=== PATIENT | female | born 1995 | race Hispanic/Latino ===

== ENCOUNTER 2019-01-03 11:29 | Emergency (ER) | payer OTHER, SELFPAY ==
[2019-01-03 12:30] LABS: Urine Blood 1+ (NEG); Urine Glucose NEGATIVE (NEG); Urine Protein NEGATIVE (NEG); Urine Specific Gravity 1.025 (1.005-1.030); Urine pH 5.5 (5.0-7.0)
[2019-01-03 12:38] LABS: Absolute Lymphocytes (CBC) 1.7 K/uL (0.7-4.9); Basophils % 0.5 % (0-1.3); Hematocrit 40.4 % (36.0-45.0); MPV 9.4 fL (7.6-11.3); RBC Red Blood Cell Count 4.55 M/uL (3.86-4.86)
[2019-01-03 12:54] LABS: Potassium 3.4 mmol/L (3.5-5.1)
[2019-01-03 13:28] LABS: Urine Bacteria 20-50 /HPF (<20); Urine Culture Reflex Order REFLEXED; Urine Mucus 2+ /HPF (NONE SEEN)
[2019-01-03] MEDS ORDERED: AZITHROMYCIN 250 MG TAB ONE (13:30)
[2019-01-03] MEDS ORDERED: CEFTRIAXONE 250 MG/VIAL ONE (13:30)
--- NOTE | 2019-01-03 13:50 | EDPHYS ---
Physician Documentation [facility] Name: Beckie Carrillo Age: 23 yrs Sex: Female : 1995 Arrival Date: 01/03/2019 Time: 11:48 Bed 26 Private MD: ED Physician Calin Nichols HPI: 01/03 12:19 This 23 yrs old Female presents to ER via Ambulatory with complaints of Fever. 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 - Social history:: Smoking status: Patient/guardian denies using tobacco. - Ebola Screening: : No symptoms or risks identified at this time. ROS: 12:51 Constitutional: Negative for fever, chills, and weight loss, Eyes: Negative for injury, jr8 pain, redness, and discharge, ENT: Negative for injury, pain, and discharge, Neck: Negative for injury, pain, and swelling, Cardiovascular: Negative for chest pain, palpitations, and edema, Respiratory: Negative for shortness of breath, cough, wheezing, and pleuritic chest pain, Abdomen/GI: Negative for abdominal pain, nausea, vomiting, diarrhea, and constipation, Skin: Negative for injury, rash, and discoloration, Neuro: Negative for headache, weakness, numbness, tingling, and seizure. 12:51 Allergy/Immunology: Positive for swelling to right inguinal area. Exam: 12:51 Constitutional: This is a well developed, well nourished patient who is awake, alert, jr8 and in no acute distress. Head/Face: Normocephalic, atraumatic. Eyes: Pupils equal round and reactive to light, extra-ocular motions intact. Lids and lashes normal. Conjunctiva and sclera are non-icteric and not injected. Cornea within normal limits. Periorbital areas with no swelling, redness, or edema. ENT: Nares patent. No nasal discharge, no septal abnormalities noted. Tympanic membranes are normal and external auditory canals are clear. Oropharynx with no redness, swelling, or masses, exudates, or evidence of obstruction, uvula midline. Mucous membranes moist. Neck: Trachea midline, no thyromegaly or masses palpated, and no cervical lymphadenopathy. Supple, full range of motion without nuchal rigidity, or vertebral point tenderness. No Meningismus. Chest/axilla: Normal chest wall appearance and motion. Nontender with no deformity. No lesions are appreciated. Cardiovascular: Regular rate and rhythm with a normal S1 and S2. No gallops, murmurs, or rubs. Normal PMI, no JVD. No pulse deficits. Respiratory: Lungs have equal breath sounds bilaterally, clear to auscultation and percussion. No rales, rhonchi or wheezes noted. No increased work of breathing, no retractions or nasal flaring. Abdomen/GI: Soft, non-tender, with normal bowel sounds. No distension or tympany. No guarding or rebound. No evidence of tenderness throughout. Back: No spinal tenderness. No costovertebral tenderness. Full range of motion. Skin: Warm, dry with normal turgor. Normal color with no rashes, no lesions, and no evidence of cellulitis. MS/ Extremity: Pulses equal, no cyanosis. Neurovascular intact. Full, normal range of motion. 12:51 Skin: Right inguinal lymphadenopathy noted, pt denies vaginal bleeding or discharge. Vital Signs: 11:57 BP 121 / 80; Pulse 113; Resp 18 S; Temp 99.2(O); Pulse Ox 98% on R/A; Weight 59.87 kg aa5 (R); Height 5 ft. 3 in. (160.02 cm) (R); Pain 5/10; 13:00 BP 110 / 78; Pulse 95; Resp 18; Temp 99; Pulse Ox 100% on R/A; mg2 14:08 BP 120 / 78; Pulse 80; Resp 17; Temp 99(O); Pulse Ox 100% ; mg2 11:57 Body Mass Index 23.38 (59.87 kg, 160.02 cm) aa5 MDM: 12:01 Patient medically screened. jr8 13:49 Data reviewed: vital signs, nurses notes, lab test result(s). Data interpreted: Pulse jr8 oximetry: on room air is 98 %. Interpretation: normal. Counseling: I had a detailed discussion with the patient and/or guardian regarding: the historical points, exam findings, and any diagnostic results supporting the discharge/admit diagnosis, lab results, the need for outpatient follow up, a family practitioner, to return to the emergency department if symptoms worsen or persist or if there are any questions or concerns that arise at home. 01/03 12:11 Order name: CBC with Diff; Complete Time: 12:40 [facility] 01/03 12:11 Order name: BMP; Complete Time: 13:14 [facility] 01/03 12:22 Order name: Urine Microscopic Only; Complete Time: 13:30 [facility] 01/03 12:22 Order name: Wet Prep; Complete Time: 15:21 [facility] 01/03 12:22 Order name: GC (GONORR/CHLAMYDIA) Probe [facility] 01/03 12:24 Order name: Urine Dipstick--Ancillary (enter results); Complete Time: 12:40 01/03 12:11 Order name: Urine Dipstick-Ancillary (obtain specimen); Complete Time: 12:29 [facility] 01/03 12:11 Order name: Urine Test (obtain specimen); Complete Time: 12:29 [facility] 01/03 12:22 Order name: Pelvic Exam Setup; Complete Time: 12:29 [facility] 01/03 13:30 Order name: Urine Culture EDMS Administered Medications: 13:36 Drug: Zithromax 1 grams Route: PO; mg2 14:03 Follow up: Response: No adverse reaction mg2 13:37 Not Given (Physician Discretion): Rocephin (cefTRIAXone) 250 mg IM once mg2 13:39 Drug: Rocephin (cefTRIAXone) 50 mg/kg Route: IVPB; Site: right antecubital; mg2 14:03 Follow up: Response: No adverse reaction; IV Status: Completed infusion mg2 Disposition: 01/03/19 13:49 Discharged to Home. Impression: Fever, unspecified, Acute lymphadenitis of lower limb, Female pelvic inflammatory disease, unspecified. - Condition is Stable. - Discharge Instructions: Fever, Adult, Pelvic Inflammatory Disease, Sexually Transmitted Disease, Safe Sex. - Prescriptions for Doxycycline Hyclate 100 mg Oral Tablet - take 1 tablet by ORAL route every 12 hours for 14 days; 28 tablet. - Medication Reconciliation Form, Thank You Letter, Antibiotic Education, Prescription Opioid Use form. - Follow up: Private Physician; When: 2 - 3 days; Reason: Recheck today's complaints, Re-evaluation by your physician. - Problem is new. - Symptoms are unchanged. Addendum: 01/05/2019 07:57 Co-signature as Attending Physician, Calin Nichols MD I agree with the assessment and c villalobos plan of care. Signatures: Dispatcher [employer] [facility] Calni Nichols MD MD cha Calderon, Audri, RN RN aa5 Sudhir Friedman, PA PA jr8 Elliott Clifford RN RN mg2 Corrections: (The following items were deleted from the chart) 01/03 13:06 12:11 [employer]+US.RAD.BRZ ordered. [facility] 14:09 13:49 01/03/2019 13:49 Discharged to Home. Impression: Fever, unspecified; Acute mg2 lymphadenitis of lower limb; Female pelvic inflammatory disease, unspecified. Condition is Stable. Discharge Instructions: Fever, Adult, Sexually Transmitted Disease, Safe Sex. Prescriptions for Doxycycline Hyclate 100 mg Oral Tablet - take 1 tablet by ORAL route every 12 hours for 14 days; 28 tablet. and Forms are Medication Reconciliation Form, Thank You Letter, Antibiotic Education, Prescription Opioid Use. Follow up: Private Physician; When: 2 - 3 days; Reason: Recheck today's complaints, Re-evaluation by your physician. Problem is new. Symptoms are unchanged. jr8
--- NOTE | 2019-01-03 13:50 | ER ---
Nurse's Notes [facility] Name: Beckie Carrillo Age: 23 yrs Sex: Female : 1995 Arrival Date: 01/03/2019 Time: 11:48 Bed 26 Private MD: Diagnosis: Fever, unspecified;Acute lymphadenitis of lower limb;Female pelvic inflammatory disease, unspecified Presentation: 01/03 11:55 Presenting complaint: Patient states: "today is day 4 of a fever". Pt denies aa5 cough/congestion/sore throat. Pt states "I also have a hangover and I did vomit but I think it's the hangover". Pt also reports diarrhea today. Pt also reports body aches. Transition of care: patient was not received from another setting of care. Onset of symptoms was December 2018. Risk Assessment: Do you want to hurt yourself or someone else? Patient reports no desire to harm self or others. Initial Sepsis Screen: Does the patient meet any 2 criteria? HR > 90 bpm. Does the patient have a suspected source of infection? No. Patient's initial sepsis screen is negative. Care prior to arrival: None. 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 - Social history:: Smoking status: Patient/guardian denies using tobacco. - Ebola Screening: : No symptoms or risks identified at this time. Screenin:26 Abuse screen: Denies threats or abuse. Denies injuries from another. Nutritional mg2 screening: No deficits noted. Tuberculosis screening: No symptoms or risk factors identified. Fall Risk IV access (20 points). Assessment: 12:27 General: Appears in no apparent distress. comfortable, Behavior is calm, cooperative. mg2 Pain: Complains of pain in right groin Pain does not radiate. Pain currently is 3 out of 10 on a pain scale. Quality of pain is described as aching, Pain began gradually, 4 days ago Is intermittent. Neuro: Level of Consciousness is awake, alert, obeys commands, Oriented to person, place, time, situation. Cardiovascular: Capillary refill < 3 seconds Patient's skin is warm and dry. Respiratory: Airway is patent Respiratory effort is even, unlabored, Respiratory pattern is regular, symmetrical. GI: No signs and/or symptoms were reported involving the gastrointestinal system. : No signs and/or symptoms were reported regarding the genitourinary system. EENT: No signs and/or symptoms were reported regarding the EENT system. Derm: Skin is intact, is healthy with good turgor, Skin is pink, warm \\T\\ dry. normal. Musculoskeletal: Circulation, motion, and sensation intact. Capillary refill < 3 seconds, Swelling present in rigth groin. Vital Signs: 11:57 BP 121 / 80; Pulse 113; Resp 18 S; Temp 99.2(O); Pulse Ox 98% on R/A; Weight 59.87 kg aa5 (R); Height 5 ft. 3 in. (160.02 cm) (R); Pain 5/10; 13:00 BP 110 / 78; Pulse 95; Resp 18; Temp 99; Pulse Ox 100% on R/A; mg2 14:08 BP 120 / 78; Pulse 80; Resp 17; Temp 99(O); Pulse Ox 100% ; mg2 11:57 Body Mass Index 23.38 (59.87 kg, 160.02 cm) aa5 ED Course: 11:48 Patient arrived in ED. aa5 11:55 Arm band placed on. aa5 11:57 Triage completed. aa5 12:01 Sudhir Friedman [facility]. jr8 12:01 Calin Nichols MD is Attending Physician. jr8 12:08 Elliott Clifford, JUAN CARLOS is Primary Nurse. mg2 12:26 Inserted saline lock: 22 gauge in right antecubital area, using aseptic technique. mg2 Blood collected. by Gera web content writer. 12:29 Patient has correct armband on for positive identification. Pulse ox on. NIBP on. Door mg2 closed. Warm blanket given. 13:34 Urine Culture Sent. jp3 14:04 Assist provider with pelvic exam: Set up pelvic tray. Performed by Errol Harvey Specimens mg2 sent to lab. Patient tolerated well. under supervision of CASSANDRA Peguero. IV discontinued, intact, bleeding controlled, No redness/swelling at site. Pressure dressing applied. Administered Medications: 13:36 Drug: Zithromax 1 grams Route: PO; mg2 14:03 Follow up: Response: No adverse reaction mg2 13:37 Not Given (Physician Discretion): Rocephin (cefTRIAXone) 250 mg IM once mg2 13:39 Drug: Rocephin (cefTRIAXone) 50 mg/kg Route: IVPB; Site: right antecubital; mg2 14:03 Follow up: Response: No adverse reaction; IV Status: Completed infusion mg2 Outcome: 13:49 Discharge ordered by MD. antonio 14:09 Discharged to home ambulatory. mg2 14:09 Condition: stable 14:09 Discharge instructions given to patient, Instructed on discharge instructions, follow up and referral plans. medication usage, Demonstrated understanding of instructions, follow-up care, medications, Prescriptions given X 1. 14:09 Patient left the ED. mg2 Signatures: Fatuma Carrasco RN RN aa5 Sudhir Friedman PA PA jr8 Elliott Clifford RN RN mg2 Tarun Williamson jp3 Corrections: (The following items were deleted from the chart) 14:08 12:26 No provider procedures requiring assistance completed. mg2 mg2
[2019-01-03 14:15] VITALS: TEMP 99; O2SAT 100
[2019-01-03 14:17] VITALS: BP 120/78
[2019-01-07 18:03] LABS: C.trachomatis RNA,TMA Not Detected (Not Detected)
== END 2019-01-03 14:09 | disposition home or self-care (01) ==
LOC: ER 11:29
DX: N73.9 Female pelvic inflammatory disease, unspecified (principal); L04.3 Acute lymphadenitis of lower limb
CPT/HCPCS: 36415; 80048; 81003; 81015; 85025; 87086; 87088; 87210; 87490; 87590; 96365; 99284; J0696

== ENCOUNTER 2021-01-07 09:32 | Emergency (ER) | payer OTHER, SELFPAY ==
[2021-01-07 10:23] LABS: Absolute Lymphocytes (CBC) 2.4 K/uL (0.7-4.9); Basophils % 0.9 % (0-1.3); Hematocrit 38.4 % (36.0-45.0); Lymphocytes % 28.8 % (15.3-44.8); RBC Red Blood Cell Count 4.32 M/uL (3.86-4.86)
[2021-01-07 10:39] LABS: Urine Blood 1+ (Negative); Urine Glucose Negative (Negative); Urine Protein Negative (Negative); Urine Specific Gravity >=1.030 (1.005-1.030)
[2021-01-07 10:55] LABS: Urine Bacteria <20 /HPF (<20); Urine RBC <5 /HPF (NONE SEEN)
[2021-01-07 10:56] LABS: BUN Blood Urea Nitrogen 12 mg/dL (7-18); Bicarbonate 24 mmol/L (21-32); Glucose Level 106 mg/dL (74-106); HCG, Quantitative 17303 mIU/mL (1-3); Potassium 3.4 mmol/L (3.5-5.1); Sodium Level 140 mmol/L (136-145)
--- NOTE | 2021-01-07 12:18 | RAD REPORT ---
EXAM DESCRIPTION: US - Transvaginal OB - 01/07/2021 12:09 pm CLINICAL HISTORY: VAGINAL BLEEDING COMPARISON: No comparisons FINDINGS: Gestational sac identified measuring 1.7 cm which is consistent with 6 weeks 1 day. No fet al heart tones identified. Vascular flow is present within the left ovary. The right ovary was not vi sualized. A yolk sac is present measuring 2 millimeters. IMPRESSION: Single IUP identified which measures 6 weeks 3 days and estimated delivery of 08/30/2021 . No pole or heart tones identified likely due to early dates. Short-term follow-up ultrasound could confirm.
--- NOTE | 2021-01-07 12:40 | EDPHYS ---
Physician Documentation [facility] Name: Beckie Carrillo Age: 25 yrs Sex: Female : 1995 Arrival Date: 01/07/2021 Time: 09:34 Bed 17 Private MD: ED Physician Betty Graham HPI: 01/07 10:39 This 25 yrs old Female presents to ER via Ambulatory with complaints of pm1 Vaginal Bleeding, + Preg <12wks. 10:39 The patient presents to the emergency department with vaginal bleeding, that is light. pm1 The estimated gestational age is 2 weeks. course: care: private OB physician. Associated signs and symptoms: Pertinent negatives: abdominal pain, dysuria, fever, vomiting. The patient has experienced a previous episode, Patient with miscarriage at 12 weeks and D\\T\\C 2 months ago. The patient has been recently seen by a physician: verification with OB as scheduled ultrasound of in 1 month. 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 - Social history:: Smoking status: Patient denies any tobacco usage or history of. ROS: 10:39 Constitutional: Negative for fever, chills, and weight loss, Cardiovascular: Negative pm1 for chest pain, palpitations, and edema, Respiratory: Negative for shortness of breath, cough, wheezing, and pleuritic chest pain, Abdomen/GI: Negative for abdominal pain, nausea, vomiting, diarrhea, and constipation. 10:39 MS/Extremity: Negative for injury and deformity, Skin: Negative for injury, rash, and discoloration, Neuro: Negative for headache, weakness, numbness, tingling, and seizure. 10:39 : Positive for vaginal bleeding, Negative for urinary symptoms, pelvic pain. 10:39 All other systems are negative. Exam: 10:39 Constitutional: This is a well developed, well nourished patient who is awake, alert, pm1 and in no acute distress. Head/Face: Normocephalic, atraumatic. 10:39 Back: No spinal tenderness. No costovertebral tenderness. Full range of motion. Skin: Warm, dry with normal turgor. Normal color with no rashes, no lesions, and no evidence of cellulitis. MS/ Extremity: Pulses equal, no cyanosis. Neurovascular intact. Full, normal range of motion. 10:39 Cardiovascular: Exam negative for acute changes, Rate: normal, Rhythm: regular, Pulses: no pulse deficits are appreciated. 10:39 Respiratory: Exam negative for acute changes, respiratory distress, shortness of breath. 10:39 Abdomen/GI: Exam negative for acute changes, Inspection: abdomen appears normal, Palpation: abdomen is soft and non-tender, in all quadrants. 10:39 Neuro: Exam negative for acute changes, Orientation: is normal, Mentation: is normal, Motor: is normal, moves all fours. Vital Signs: 09:40 BP 121 / 81; Pulse 88; Resp 18 S; Temp 98.3(O); Pulse Ox 100% on R/A; Weight 58.06 kg aa5 (R); Height 5 ft. 4 in. (162.56 cm) (R); Pain 5/10; 09:54 BP 121 / 21; Pulse 88; Resp 20; Temp 98.3; Pulse Ox 100% on R/A; kh1 10:43 BP 125 / 86; Pulse 104; Resp 20; Temp 98.3; Pulse Ox 100% ; kh1 09:40 Body Mass Index 21.97 (58.06 kg, 162.56 cm) aa5 MDM: 09:51 Patient medically screened. pm1 12:39 Data reviewed: vital signs. Data interpreted: Pulse oximetry: on room air is 100 %. pm1 Interpretation: normal. Counseling: I had a detailed discussion with the patient and/or guardian regarding: the historical points, exam findings, and any diagnostic results supporting the discharge/admit diagnosis, lab results, radiology results, the need for outpatient follow up, an OB/Gyne specialist, to return to the emergency department if symptoms worsen or persist or if there are any questions or concerns that arise at home. 01/07 09:51 Order name: Abo/rh Typing; Complete Time: 11:09 pm1 01/07 09:51 Order name: Basic Metabolic Panel; Complete Time: 11:09 pm1 10 09:51 Order name: CBC with Diff; Complete Time: 11:09 pm1 01/07 09:51 Order name: Quantitative Hcg; Complete Time: 11:09 pm1 01/07 09:51 Order name: Urine Microscopic Only; Complete Time: 11:09 pm1 01/07 10:39 Order name: Urine Dipstick-Ancillary; Complete Time: 11:09 EDMS 01/07 09:51 Order name: IV Saline Lock; Complete Time: 10:41 pm1 01/07 09:51 Order name: Labs collected and sent; Complete Time: 10:41 pm1 01/07 09:51 Order name: NPO; Complete Time: 10:41 pm1 01/07 09:51 Order name: Urine Dipstick-Ancillary (obtain specimen); Complete Time: 10:41 pm1 01/07 09:51 Order name: Urine Test (obtain specimen); Complete Time: 10:41 pm1 01/07 11:11 Order name: US Transvaginal Ob; Complete Time: 12:38 pm1 Administered Medications: No medications were administered Point of Care Testing: Urine : 11:00 hCG Reading: Positive; kh1 Disposition Summary: 01/07/21 12:39 Discharge Ordered Location: Home pm1 Problem: new pm1 Symptoms: have improved pm1 Condition: Stable pm1 Diagnosis - Threatened pm1 Followup: pm1 - With: Emergency Department - When: As needed - Reason: Worsening of condition Followup: pm1 - With: Private Physician - When: 2 - 3 days - Reason: Recheck today's complaints, Continuance of care, Re-evaluation by your physician Discharge Instructions: - Discharge Summary Sheet pm1 - Threatened Miscarriage pm1 - Vaginal Bleeding During , First Trimester pm1 - Activity Restriction During pm1 Forms: - Medication Reconciliation Form pm1 - Thank You Letter pm1 - Antibiotic Education pm1 - Prescription Opioid Use pm1 Signatures: Dispatcher [employer] EDFatuma Garcia RN RN aa5 Timmy Espinoza NP CROSS ROLLER pm1 Corrections: (The following items were deleted from the chart) 09:52 09:51 PMHx: "high heart rate and I used to take medicine for it"; aa5 aa5
--- NOTE | 2021-01-07 12:40 | ER ---
Nurse's Notes [facility] Name: Beckie Carrillo Age: 25 yrs Sex: Female : 1995 Arrival Date: 01/07/2021 Time: 09:34 Bed 17 Private MD: Diagnosis: Threatened Presentation: 01/07 09:40 Chief complaint: Patient states: "I found out I am last week and today I aa5 started cramping and spotting". Pt states "I had a D\\T\\C about 2 months ago". 09:40 Coronavirus screen: At this time, the client does not indicate any symptoms associated aa5 with coronavirus-19. Ebola Screen: Patient negative for fever greater than or equal to 101.5 degrees Fahrenheit, and additional compatible Ebola Virus Disease symptoms. Initial Sepsis Screen: Does the patient meet any 2 criteria? No. Patient's initial sepsis screen is negative. Does the patient have a suspected source of infection? No. Patient's initial sepsis screen is negative. Risk Assessment: Do you want to hurt yourself or someone else? Patient reports no desire to harm self or others. Onset of symptoms was January 2021. 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 - Social history:: Smoking status: Patient denies any tobacco usage or history of. Screenin:54 Abuse screen: Denies threats or abuse. Nutritional screening: No deficits noted. [facility] Tuberculosis screening: No symptoms or risk factors identified. Fall Risk None identified. No fall in past 12 months (0 pts). No secondary diagnosis (0 pts). No IV (0 pts). Ambulatory Aid- None/Bed Rest/Nurse Assist (0 pts). Gait- Normal/Bed Rest/Wheelchair (0 pts) Mental Status- Oriented to own ability (0 pts). Assessment: 09:53 Obstetrical Assessment: General assessment: awake and alert, skin warm and dry, Rupture [facility] of membranes noted. Contractions Patient reports abdominal cramping. General: Appears in no apparent distress. uncomfortable, slender, Behavior is calm, cooperative, appropriate for age, tearful. Pain: Denies pain. : No deficits noted. Reports vaginal bleeding that is spotty. 10:41 Reassessment: Patient appears in no apparent distress at this time. No changes from 1 previously documented assessment. Patient and/or family updated on plan of care and expected duration. Pain level reassessed. Patient is alert, oriented x 3, equal unlabored respirations, skin warm/dry/pink. Vital Signs: 09:40 BP 121 / 81; Pulse 88; Resp 18 S; Temp 98.3(O); Pulse Ox 100% on R/A; Weight 58.06 kg aa5 (R); Height 5 ft. 4 in. (162.56 cm) (R); Pain 5/10; 09:54 BP 121 / 21; Pulse 88; Resp 20; Temp 98.3; Pulse Ox 100% on R/A; kh1 10:43 BP 125 / 86; Pulse 104; Resp 20; Temp 98.3; Pulse Ox 100% ; kh1 09:40 Body Mass Index 21.97 (58.06 kg, 162.56 cm) aa5 Vitals: 09:54 Cardiac Rhythm Assessment Regular. 1 ED Course: 09:34 Patient arrived in ED. as 09:39 Timmy Espinoza NP is PHCP. pm1 09:39 Betty Graham MD is Attending Physician. pm1 09:40 Arm band placed on Patient placed in an exam room, on a stretcher. aa5 09:47 Tianna Cabral is Primary Nurse. kh1 09:51 Triage completed. aa5 09:54 No provider procedures requiring assistance completed. kh1 09:56 Placed in gown. Bed in low position. Call light in reach. Side rails up X 1. Cardiac kh1 monitor on. Pulse ox on. NIBP on. 10:41 Urine Microscopic Only Sent. kh1 10:41 Basic Metabolic Panel Sent. kh1 10:41 CBC with Diff Sent. kh1 10:41 Quantitative Hcg Sent. kh1 12:09 US Transvaginal Ob In Process Unspecified. EDMS 12:54 IV discontinued, intact, bleeding controlled, No redness/swelling at site. Pressure kh1 dressing applied. Administered Medications: No medications were administered Point of Care Testing: Urine : 11:00 hCG Reading: Positive; [facility] Outcome: 12:39 Discharge ordered by . pm1 12:54 Discharged to home kh 12:54 Condition: good 12:54 Discharge instructions given to patient, Instructed on discharge instructions, follow up and referral plans. Demonstrated understanding of instructions, follow-up care. 13:11 Patient left the ED. [facility] Signatures: Dispatcher [employer] Kaykay Schmid Audri RN RN aa5 Timmy Espinoza NP FINDING FASTENER pm1 Tianna Cabral [facility] Corrections: (The following items were deleted from the chart) 09:52 09:51 PMHx: "high heart rate and I used to take medicine for it"; aimee aa5
[2021-01-07 13:23] VITALS: TEMP 98.3
[2021-01-07 13:39] VITALS: BP 135/85; O2SAT 97
== END 2021-01-07 13:11 | disposition home or self-care (01) ==
LOC: ER 09:32
DX: O20.0 Threatened abortion (principal); Z3A.01 Less than 8 weeks gestation of pregnancy
CPT/HCPCS: 36415; 76817; 80048; 81003; 81015; 84702; 85025; 86900; 86901; 99284

== ENCOUNTER 2021-02-01 08:21 | Emergency (ER) | payer OTHER ==
[2021-02-01] MEDS ORDERED: NA CHLORIDE 0.9% 1,000 ML ONE (09:19)
[2021-02-01 09:25] LABS: Absolute Lymphocytes (CBC) 2.4 K/uL (0.7-4.9); Basophils % 0.4 % (0-1.3); Hematocrit 37.7 % (36.0-45.0); Lymphocytes % 28.8 % (15.3-44.8); MPV 8.9 fL (7.6-11.3); RBC Red Blood Cell Count 4.32 M/uL (3.86-4.86)
[2021-02-01 09:28] LABS: Urine Appearance CLEAR (Clear); Urine Bilirubin NEGATIVE (Negative); Urine Blood NEGATIVE (Negative); Urine Color YELLOW (Yellow); Urine Glucose NEGATIVE (Negative); Urine Protein NEGATIVE (Negative); Urine Specific Gravity <=1.005 (1.005-1.030); Urine Urobilinogen 0.2 mg/dL (0.2-1.0)
[2021-02-01 09:47] LABS: Urine Bacteria <20 /HPF (<20); Urine RBC NONE SEEN /HPF (NONE SEEN)
[2021-02-01 09:55] LABS: BUN Blood Urea Nitrogen 13 mg/dL (7-18); Bicarbonate 24 mmol/L (21-32); Glucose Level 81 mg/dL (74-106); HCG, Quantitative 125335 mIU/mL (1-3); Potassium 3.7 mmol/L (3.5-5.1); Sodium Level 139 mmol/L (136-145)
--- NOTE | 2021-02-01 10:24 | RAD REPORT ---
EXAM DESCRIPTION: US - Transvaginal OB - 02/01/2021 10:05 am CLINICAL HISTORY: dizziness COMPARISON: Transvaginal OB dated 01/07/2021 FINDINGS: Single viable IUP with positive heart tones. Two small subchorionic hemorrhages are noted which combined occupy less than 25% of the circumference of the gestational sac. The crown-rump length measures 2.2 cm which is consistent with 8 weeks 6 days. The heart rate is measured at 172 beats per minute. IMPRESSION: Single viable IUP with positive heart tones measuring 8 weeks 6 days with estimate d delivery of 09/07/2021. Small subchorionic hemorrhage (less than 25%)
--- NOTE | 2021-02-01 10:52 | ER ---
Nurse's Notes [facility] Name: Beckie Carrillo Age: 26 yrs Sex: Female : 1995 Arrival Date: 02/01/2021 Time: 08:25 Bed 23 Private MD: Diagnosis: Dizziness and giddiness; related conditions, unspecified, first trimester Presentation: 02/01 08:26 Chief complaint: Patient states: i am really dizzy. it started like 4 days ago. its tw2 happening every day. i got up for work and maybe it was because i was rushing around. i am super dizzy and i feel weak. i am congested. i feel like i am spinning not the room, its like i am leaning. also when i bend over to pull my pants up i got dizzy too. Chief complaint: Patient states: i also have a headache and have been congested for a few days. Coronavirus screen: At this time, the client does not indicate any symptoms associated with coronavirus-19. Ebola Screen: Patient denies travel to an Ebola-affected area in the 21 days before illness onset. Initial Sepsis Screen: Does the patient meet any 2 criteria? No. Patient's initial sepsis screen is negative. Does the patient have a suspected source of infection? No. Patient's initial sepsis screen is negative. Risk Assessment: Do you want to hurt yourself or someone else? Patient reports no desire to harm self or others. Onset of symptoms was February 01, 2021. 08:26 Method Of Arrival: Ambulatory tw2 08:26 Acuity: ANDREW 3 tw2 08:30 Note pt states "i also have where my heart beats two times faster than it should but i tw2 got it checked out by Dr. Tyson recently and it was fine". Triage Assessment: 08:29 General: Appears in no apparent distress. slender, Behavior is calm, cooperative, tw2 appropriate for age. Pain: Complains of pain in "headache". Neuro: Reports dizziness, since for 4 days now. HEALTH PLAN ADVISOR: 08:45 2, 1, Verified jw6 Historical: - Allergies: 08:29 No Known Allergies; tw2 - Home Meds: 08:29 None [Active]; tw2 - PMHx: 08:29 high heart rate; tw2 - PSHx: 08:29 D\\T\\C; tw2 - Immunization history:: Client reports receiving the 2nd dose of the Covid vaccine. - Social history:: Smoking status: Patient denies any tobacco usage or history of. - Family history:: not pertinent. - Hospitalizations: : No recent hospitalization is reported. Screenin:36 Abuse screen: Denies threats or abuse. Nutritional screening: No deficits noted. tw2 Tuberculosis screening: No symptoms or risk factors identified. Fall Risk None identified. Assessment: 09:06 General: Appears in no apparent distress. Behavior is calm, cooperative. Pain: Denies jw6 pain. Neuro: No deficits noted. Cardiovascular: No deficits noted. Respiratory: No deficits noted. GI: No deficits noted. : No deficits noted. EENT: No deficits noted. Derm: No deficits noted. Musculoskeletal: No deficits noted. Vital Signs: 08:26 BP 113 / 69; Pulse 92; Resp 18; Temp 97.9(TE); Pulse Ox 100% on R/A; Weight 58.97 kg tw2 (R); Height 5 ft. 4 in. (162.56 cm); 08:44 BP 110 / 60 Supine; jw6 08:44 BP 114 / 71 Sitting; jw6 08:44 BP 109 / 66 Standing; jw6 08:26 Body Mass Index 22.31 (58.97 kg, 162.56 cm) tw2 ED Course: 08:25 Patient arrived in ED. mr 08:29 Triage completed. tw2 08:30 Geovanny Malave MD is Attending Physician. rn 08:30 Arm band placed on. tw2 08:31 Bed in low position. Call light in reach. pt states "i need to use the restroom if yall tw2 need a sample", pt given urine specimen cup and directed to the restroom. 08:33 Katt Trujillo is Primary Nurse. jw6 09:06 No provider procedures requiring assistance completed. Initial lab(s) drawn, by , judith sent to lab. Urine collected: clean catch specimen, clear. Inserted saline lock: 20 gauge in right antecubital area, using aseptic technique. Blood collected. Administered Medications: 09:05 Drug: NS 0.9% 1000 ml Route: IV; Rate: 1000 ml; Site: right antecubital; jwCaio Outcome: 10:51 Discharge ordered by . rn 11:01 Patient left the ED. jw6 Signatures: Donna Beach Roman, MD MD rn Wise, Tara, RN RN Katt Malone jw6
--- NOTE | 2021-02-01 10:52 | EDPHYS ---
Physician Documentation [facility] Name: Beckie Carrillo Age: 26 yrs Sex: Female : 1995 Arrival Date: 02/01/2021 Time: 08:25 Bed 23 Private MD: ED Physician Geovanny Malave HPI: 02/01 08:45 This 26 yrs old Female presents to ER via Ambulatory with complaints of 9wks rn , Dizziness. 08:45 The patient presents with dizziness, feeling faint, generalized weakness. Onset: The rn symptoms/episode began/occurred 4 day(s) ago. Context:. Modifying factors: The symptoms are alleviated by lying down, the symptoms are aggravated by standing up, changing position. Associated signs and symptoms: Pertinent positives: , Pertinent negatives: abdominal pain, chest pain, confusion, focal weakness, head injury, palpitations, shortness of breath, syncope, tingling, vomiting. Severity of symptoms: At their worst the symptoms were moderate in the emergency department the symptoms are unchanged. The patient has not experienced similar symptoms in the past. The patient has not recently seen a physician. Patient reports 4 days of intermittent dizziness and feeling generalized weakness. Reports is 9 weeks but no vaginal bleeding or leakage of fluid. No urinary symptoms. No chest pain/shortness of breath/abdominal pain/vomiting/diarrhea. Denies any recent head injury. Reports feels congested and just generalized malaise. No blood in stool. No changes in medication. No palpitations.. NEWS VIDEOGRAPHER: 08:45 2, 1, Verified jw6 Historical: - Allergies: 08:29 No Known Allergies; tw2 - Home Meds: 08:29 None [Active]; tw2 - PMHx: 08:29 high heart rate; tw2 - PSHx: 08:29 D\T\C; tw2 - Immunization history:: Client reports receiving the 2nd dose of the Covid vaccine. - Social history:: Smoking status: Patient denies any tobacco usage or history of. - Family history:: not pertinent. - Hospitalizations: : No recent hospitalization is reported. ROS: 08:45 Constitutional: Negative for fever, chills, and weight loss, Eyes: Negative for injury, rn pain, redness, and discharge, ENT: Positive for nasal congestion Neck: Negative for injury, pain, and swelling, Cardiovascular: Negative for chest pain, palpitations, and edema, Respiratory: Negative for shortness of breath, cough, wheezing, and pleuritic chest pain, Abdomen/GI: Negative for abdominal pain, nausea, vomiting, diarrhea, and constipation, Back: Negative for injury and pain, : Negative for injury, bleeding, discharge, and swelling, MS/Extremity: Negative for injury and deformity, Skin: Negative for injury, rash, and discoloration, Neuro: Negative for weakness, numbness, tingling, and seizure. Exam: 08:45 Constitutional: This is a well developed, well nourished patient who is awake, alert, rn and in no acute distress. Ambulatory to room without difficulty or assistance Head/Face: Normocephalic, atraumatic. Eyes: Pupils equal round and reactive to light, extra-ocular motions intact. Lids and lashes normal. Conjunctiva and sclera are non-icteric and not injected. Cornea within normal limits. Periorbital areas with no swelling, redness, or edema. ENT: Moist mucous membranes Neck: Trachea midline, no thyromegaly or masses palpated, and no cervical lymphadenopathy. Supple, full range of motion without nuchal rigidity, or vertebral point tenderness. No Meningismus. Cardiovascular: Regular rate and rhythm. No pulse deficits. Respiratory: No increased work of breathing, no retractions or nasal flaring. Abdomen/GI: Soft, non-tender Skin: Warm, dry MS/ Extremity: Pulses equal, no cyanosis. Neurovascular intact. Full, normal range of motion. Equal circumference. Neuro: Awake and alert, GCS 15, oriented to person, place, time, and situation. Cranial nerves II-XII grossly intact. Motor strength 5/5 in all extremities. Sensory grossly intact. Cerebellar exam normal. Normal gait. 09:42 ECG was reviewed by the Attending Physician. rn Vital Signs: 08:26 BP 113 / 69; Pulse 92; Resp 18; Temp 97.9(TE); Pulse Ox 100% on R/A; Weight 58.97 kg tw2 (R); Height 5 ft. 4 in. (162.56 cm); 08:44 BP 110 / 60 Supine; jw6 08:44 BP 114 / 71 Sitting; jw6 08:44 BP 109 / 66 Standing; jw6 08:26 Body Mass Index 22.31 (58.97 kg, 162.56 cm) tw2 MDM: 08:30 Patient medically screened. rn 10:36 ED course: No vaginal bleeding reported by patient. Rh+. Ultrasound shows live rn intrauterine with small subchorionic hemorrhage.. 10:50 ED course: Leg resolved and patient feels better. Orthostatics grossly normal. No acute rn findings on blood work or ultrasound to explain dizziness.. 10:50 Differential diagnosis: cardiac arrhythmia, generalized weakness, hypovolemia, rn idiopathic dizziness, , UTI. Data reviewed: vital signs, nurses notes, lab test result(s), EKG, radiologic studies, ultrasound, and as a result, I will discharge patient. Data interpreted: door hanger: rate is 92 beats/min, rhythm is normal sinus rhythm, regular, with no ectopy, Interpretation: normal rate, normal rhythm, Pulse oximetry: on room air is 100 %. Interpretation: normal. Counseling: I had a detailed discussion with the patient and/or guardian regarding: the historical points, exam findings, and any diagnostic results supporting the discharge/admit diagnosis, lab results, radiology results, the need for outpatient follow up, to return to the emergency department if symptoms worsen or persist or if there are any questions or concerns that arise at home. Response to treatment: the patient's symptoms have markedly improved after treatment, and as a result, I will discharge patient. Special discussion: I discussed with the patient/guardian in detail that at this point there is no indication for admission to the hospital. It is understood, however, that if the symptoms persist or worsen the patient needs to return immediately for re-evaluation. Based on the history and exam findings, there is no indication for further emergent testing or inpatient evaluation. I discussed with the patient/guardian the need to see the OB Gyne specialist for further evaluation of the symptoms. 10:59 ED course: Had long discussion with patient regarding small incidental subchorionic rn bleed seen on ultrasound and given return precautions and told to follow-up with OB.. 02/01 08:42 Order name: US OB Limited rn 02/01 08:52 Order name: Urine Dipstick--Ancillary (enter results) bd 02/01 08:52 Order name: Urine --Ancillary (enter results) bd 02/01 09:26 Order name: CBC with Automated Diff; Complete Time: :27 EDMS 02/01 09:29 Order name: Urinalysis W/Microscopic; Complete Time: 09:48 [facility] 02/01 09:56 Order name: Basic Metabolic Panel; Complete Time: 10:36 [facility] 02/01 09:56 Order name: HCG, Quantitative; Complete Time: 10:36 [facility] 02/01 10:25 Order name: US; Complete Time: 10:36 [facility] 02/01 08:42 Order name: IV Start; Complete Time: 09:06 02/01 08:42 Order name: Urine Dipstick-Ancillary (obtain specimen); Complete Time: 08:50 rn 02/01 08:42 Order name: Urine Test (obtain specimen); Complete Time: 08:50 rn 02/01 08:42 Order name: EKG; Complete Time: 16:50 02/01 08:42 Order name: EKG - Nurse/Tech; Complete Time: 08:50 02/01 08:42 Order name: Orthostatics; Complete Time: 08:46 rn EC:42 Rate is 68 beats/min. Rhythm is regular. QRS [place] is Normal. IA interval is normal. QRS rn interval is normal. QT interval is normal. No Q waves. T waves are Normal. No ST changes noted. Clinical impression: Normal ECG. Interpreted by me. Reviewed by me. Administered Medications: 09:05 Drug: NS 0.9% 1000 ml Route: IV; Rate: 1000 ml; Site: right antecubital; jw6 Disposition Summary: 02/01/21 10:51 Discharge Ordered Location: Home rn Problem: new rn Symptoms: have improved rn Condition: Stable rn Diagnosis - Dizziness and giddiness rn - related conditions, unspecified, first trimester rn Followup: rn - With: Private Physician - When: As needed - Reason: Recheck today's complaints, Re-evaluation by your physician Discharge Instructions: - Discharge Summary Sheet rn - Dizziness rn - First Trimester of rn Forms: - Medication Reconciliation Form rn - Thank You Letter rn - Antibiotic recruiting internship - Prescription Opioid Use rn Signatures: Dispatcher [employer] Geovanny Pope MD MD rn Wise, Tara, RN RN Katt Miramontes jw6
[2021-02-01 11:14] VITALS: BP 109/66
[2021-02-01 11:16] VITALS: TEMP 97.9; O2SAT 100
[2021-02-01 16:58] LABS: Urine Blood NEGATIVE (Negative); Urine Glucose NEGATIVE (Negative); Urine Protein NEGATIVE (Negative); Urine Specific Gravity 1.015 (1.005-1.030); Urine Specific Gravity/Preg 1.015 (1.005-1.030); Urine pH 6.5 (5.0-7.0)
== END 2021-02-01 11:01 | disposition home or self-care (01) ==
LOC: ER 08:21
DX: O26.891 Other specified pregnancy related conditions, first trimester (principal); Z3A.09 9 weeks gestation of pregnancy
CPT/HCPCS: 93005; 87088; 85025; 81001; 87086; 80048; 36415; 81025; 84702; 81003; 76817; 99283; J7030

== ENCOUNTER 2021-04-02 22:18 | Emergency (ER) | payer OTHER, SELFPAY ==
--- OUTSIDE RECORDS SUMMARY | 2021-04-02 22:22 | XMS REPORT | Continuity of Care Document ---
:1995 Author Organization [facility] t Address [address] [place] [address] Care Team Providers Name Role Phone Jhonny CHOU Primary Care Physician Unavailable VICENTE Attending Clinician Unavailable ONIEL Attending Clinician Unavailable Jhonny CHOU Attending Clinician Unavailable Fletcher MONDRAGON Attending Clinician Unavailable Vicente CALVO Attending Clinician Amber DEUTSCH Attending Clinician Unavailable Amber DEUTSCH Attending Clinician Unavailable Lab Attending Clinician Unavailable Aaron ROBERT M Attending Clinician 5, [facility] Us Room Attending Clinician Unavailable Bruno TAN Attending Clinician Provider, Temp Attending Clinician Unavailable Uli IRWIN O Attending Clinician Romana BECKFORD Attending Clinician Unavailable Paul RANGEL, L Attending Clinician Unavailable Alanna TAN, N Attending Clinician Ultrasound Attending Clinician Unavailable Mitchell Bennett MD Attending Clinician MITCHELL BENNETT Attending Clinician Unavailable Jhonny Spangler Attending Clinician Doctor Unassigned, Name Attending Clinician Unavailable DR ESTELLA Attending Clinician Unavailable DR ESTELLA Admitting Clinician Unavailable Payers Payer Name Policy Type Policy Number Effective Date Expiration Date S sun URBINAS [id number] 2021 HEALTH 00:00:00 Problems Condition Condition Condition Status Onset Resolution Last Treating Co mments Source Name Details Category Date Date Treatment Clinician Date Cramping Cramping Disease Active 2020-04 Unive rs affecting affecting 1-15 ity of , , [place] [facility] [place] Supervisio Supervisio Disease Active 2020-04 U nivers n of n of 0-04 ity of high-risk high-risk 00:[facility]: [facility] Vaginal Vaginal Disease Active 2020-04 Univers bleeding bleeding 0-04 ity of in in 00:00: [place] 00 [facility] History of History of Disease Active 2020-04 U nivers miscarriag miscarriag 0-04 it y of e e 00:00: [address] Dyspareuni Dyspareuni Disease Active U nivers a in a in 4-16 ity of female female 00:00: [address] Allergies, Adverse Reactions, Alerts Allergy Allergy Status Severity Reaction(s) Onset Inactive Treating Comm ents Source Name Type Date Date Clinician NO KNOWN Drug Active Univers ALLERGIE Class ity of S [facility] Social History Social Habit Start Date Stop Date Quantity Comments Source ASSERTION 2020-12-17 University of 00:00:00 [facility] History SDOH University o f Alcohol Frequency [facility] edical [place] History SDOH University o f Alcohol Std Drinks [facility] History [facility] University o f Alcohol Binge [facility] al [place] Exposure to Not sure [facility] SARS-CoV-2 (event) [facility] Alcohol intake 2021-03-06 2021-03-06 0 /d University of 00:00:00 00:00:00 [facility] Alcohol Comment 2017-07-22 2017-07-22 on occassion Univers ity of 00:00:00 00:00:00 [facility] Tobacco use and 2015-11-01 2015-11-01 Never used Universit y of exposure 00:00:00 00:00:00 [facility] Sex Assigned At [birth year] Universit y of 00:00:00 00:00:00 [facility] Smoking Status Start Date Stop Date Source Never smoker University [facility] Medications Ordered Filled Start Stop Current Ordering Indication Dosage Frequency Signature Comments Components Source Medication Medication Date Date Medication? Clinician (SIG) Name Name Yes [id number] 1{packe Take 1 Univers vit 9-30 t} Packet by ity of 33-iron-fol 00:00: mouth [place] ic-dha 00 daily. Medical ([facility] + DHA) 29 mg iron-1 mg -250 mg combo pack Yes [id number] 1{packe Take 1 Univers vit 9-30 t} Packet by ity of 33-iron-fol 00:00: mouth [place] ic-dha 00 daily. Medical ([facility] + DHA) 29 mg iron-1 mg -250 mg combo pack Yes [id number] 1{packe Take 1 Univers vit 9-30 t} Packet by ity of 33-iron-fol 00:00: mouth [place] ic-dha 00 daily. Medical ([facility] + DHA) 29 mg iron-1 mg -250 mg combo pack Yes [id number] 1{packe Take 1 Univers vit 9-30 t} Packet by ity of 33-iron-fol 00:00: mouth [place] ic-dha 00 daily. Medical ([facility] + DHA) 29 mg iron-1 mg -250 mg combo pack Yes [id number] 1{packe Take 1 Univers vit 9-30 t} Packet by ity of 33-iron-fol 00:00: mouth [place] ic-dha 00 daily. Medical ([facility] + DHA) 29 mg iron-1 mg -250 mg combo pack Yes [id number] 1{packe Take 1 Univers vit 9-30 t} Packet by ity of 33-iron-fol 00:00: mouth [place] ic-dha 00 daily. Medical ([facility] + DHA) 29 mg iron-1 mg -250 mg combo pack Yes [id number] 1{packe Take 1 Univers vit 9-30 t} Packet by ity of 33-iron-fol 00:00: mouth [place] ic-dha 00 daily. Medical ([facility] + DHA) 29 mg iron-1 mg -250 mg combo pack Yes [id number] 1{packe Take 1 Univers vit 9-30 t} Packet by ity of 33-iron-fol 00:00: mouth [place] ic-dha 00 daily. Medical ([facility] + DHA) 29 mg iron-1 mg -250 mg combo pack Yes [id number] 1{packe Take 1 Univers vit 9-30 t} Packet by ity of 33-iron-fol 00:00: mouth [place] ic-dha 00 daily. Medical ([facility] + DHA) 29 mg iron-1 mg -250 mg combo pack Yes [id number] 1{packe Take 1 Univers vit 9-30 t} Packet by ity of 33-iron-fol 00:00: mouth [place] ic-dha 00 daily. Medical ([facility] + DHA) 29 mg iron-1 mg -250 mg combo pack Yes [id number] 1{packe Take 1 Univers vit 9-30 t} Packet by ity of 33-iron-fol 00:00: mouth [place] ic-dha 00 daily. Medical ([facility] + DHA) 29 mg iron-1 mg -250 mg combo pack Yes [id number] 1{packe Take 1 Univers vit 9-30 t} Packet by ity of 33-iron-fol 00:00: mouth [place] ic-dha 00 daily. Medical ([facility] + DHA) 29 mg iron-1 mg -250 mg combo pack Yes [id number] 1{packe Take 1 Univers vit 9-30 t} Packet by ity of 33-iron-fol 00:00: mouth [place] ic-dha 00 daily. Medical ([facility] + DHA) 29 mg iron-1 mg -250 mg combo pack Yes [id number] 1{packe Take 1 Univers vit 9-30 t} Packet by ity of 33-iron-fol 00:00: mouth [place] ic-dha 00 daily. Medical ([facility] + DHA) 29 mg iron-1 mg -250 mg combo pack Yes [id number] 1{packe Take 1 Univers vit 9-30 t} Packet by ity of 33-iron-fol 00:00: mouth [place] ic-dha 00 daily. Medical ([facility] Branch + DHA) 29 mg iron-1 mg -250 mg combo pack Yes [id number] 1{packe Take 1 Univers vit 9-30 t} Packet by ity of 33-iron-fol 00:00: mouth [place] ic-dha 00 daily. Medical ([facility] Branch + DHA) 29 mg iron-1 mg -250 mg combo pack Yes [id number] 1{packe Take 1 Univers vit 9-30 t} Packet by ity of 33-iron-fol 00:00: mouth [place] ic-dha 00 daily. Medical ([facility] Branch + DHA) 29 mg iron-1 mg -250 mg combo pack Yes [id number] 1{packe Take 1 Univers vit 9-30 t} Packet by ity of 33-iron-fol 00:00: mouth [place] ic-dha 00 daily. Medical ([facility] + DHA) 29 mg iron-1 mg -250 mg combo pack Immunizations Ordered Filled Immunization Date Status Comments [facility] e Immunization Name Name Influenza Virus 2021-01-23 Completed Universit y of Vaccine [facility] IM, 00:00:00 [place] Me dical Preserv and ABX Branch Free 2-64 YRS Influenza Virus 2021-01-23 Completed Universit y of Vaccine [facility] IM, 00:00:00 [place] Me [facility] Preserv and ABX Branch Free 6 MO-64 YRS Influenza Virus 2021-01-23 Completed Universit y of Vaccine [facility], 00:00:00 [place] Me [facility]ical Preserv and ABX Branch Free 6 MO-64 YRS Influenza Virus 2021-01-23 Completed Universit y of Vaccine [facility], 00:00:00 [place] [facility]ical Preserv and ABX Branch Free 6 MO-64 YRS Influenza Virus 2021-01-23 Completed Universit y of Vaccine [facility], 00:00:00 [place] Me [facility]ical Preserv and ABX Branch Free 6 MO-64 YRS Influenza Virus 2021-01-23 Completed Universit y of Vaccine [facility], 00:00:00 [place] [facility] Preserv and ABX Branch Free 6 MO-64 YRS Influenza Virus 2021-01-23 Completed Universit y of Vaccine [facility], 00:00:00 [place] Me [facility]ical Preserv and ABX Branch Free 6 MO-64 YRS Influenza Virus 2021-01-23 Completed Universit y of Vaccine [facility], 00:00:00 [place] [facility]ical Preserv and ABX Branch Free 6 MO-64 YRS Influenza Virus 2021-01-23 Completed Universit y of Vaccine [facility] IM, 00:00:00 [place] [facility] Preserv and ABX Branch Free 6 MO-64 YRS Influenza Virus 2021-01-23 Completed Universit y of Vaccine [facility] IM, 00:00:00 [place] Me [facility]ical Preserv and ABX Branch Free 6 MO-64 YRS Influenza Virus 2021-01-23 Completed Universit y of Vaccine [facility], 00:00:00 [place] Me [facility]ical Preserv and ABX Branch Free 6 MO-64 YRS Influenza Virus 2021-01-23 Completed Universit y of Vaccine [facility] IM, 00:00:00 [place] Me [facility]ical Preserv and ABX Branch Free 6 MO-64 YRS HPV9 2016-05-18 Completed University of 00:00:00 [facility] HPV9 2016-05-18 Completed University of 00:00:00 [facility] HPV9 2016-05-18 Completed University of 00:00:00 [facility] HPV9 2016-05-18 Completed University of 00:00:00 [facility] HPV9 2016-05-18 Completed University of 00:00:00 [facility] HPV9 2016-05-18 Completed University of 00:00:00 [facility] HPV9 2016-05-18 Completed University of 00:00:00 [facility] HPV9 2016-05-18 Completed University of 00:00:00 [facility] HPV9 2016-05-18 Completed University of 00:00:00 [facility] HPV9 2016-05-18 Completed University of 00:00:00 [facility] HPV9 2016-05-18 Completed University of 00:00:00 [facility] HPV9 2016-05-18 Completed University of 00:00:00 [facility] HPV9 2016-05-18 Completed University of 00:00:00 [facility] HPV9 2016-05-18 Completed University of 00:00:00 [facility] HPV9 2016-05-18 Completed University of 00:00:00 [facility] HPV9 2016-05-18 Completed University of 00:00:00 [facility] HPV9 2016-05-18 Completed University of 00:00:00 [facility] HPV9 2016-05-18 Completed University of 00:00:00 [facility] HPV9 2016-01-03 Completed University of 00:00:00 [facility] HPV9 2016-01-03 Completed University of 00:00:00 [facility] HPV9 2016-01-03 Completed University of 00:00:00 [place] [facility] HPV9 2016-01-03 Completed University of 00:00:00 [place] [facility] HPV9 2016-01-03 Completed University of 00:00:00 [place] [facility] HPV9 2016-01-03 Completed University of 00:00:00 [place] [facility] HPV9 2016-01-03 Completed University of 00:00:00 [place] [facility] HPV9 2016-01-03 Completed University of 00:00:00 [place] [facility] HPV9 2016-01-03 Completed University of 00:00:00 [place] [facility] HPV9 2016-01-03 Completed University of 00:00:00 [place] [facility] HPV9 2016-01-03 Completed University of 00:00:00 [place] [facility] HPV9 2016-01-03 Completed University of 00:00:00 [place] [facility] HPV9 2016-01-03 Completed University of 00:00:00 [place] [facility] HPV9 2016-01-03 Completed University of 00:00:00 [place] [facility] HPV9 2016-01-03 Completed University of 00:00:00 [place] [facility] HPV9 2016-01-03 Completed University of 00:00:00 [place] [facility] HPV9 2016-01-03 Completed University of 00:00:00 [place] [facility] HPV9 2016-01-03 Completed University of 00:00:00 [place] [facility] HPV9 2015-11-01 Completed University of 00:00:00 [place] [facility] HPV9 2015-11-01 Completed University of 00:00:00 [place] [facility] HPV9 2015-11-01 Completed University of 00:00:00 [place] [facility] HPV9 2015-11-01 Completed University of 00:00:00 [place] [facility] HPV9 2015-11-01 Completed University of 00:00:00 [place] [facility] HPV9 2015-11-01 Completed University of 00:00:00 [place] [facility] HPV9 2015-11-01 Completed University of 00:00:00 [place] [facility] HPV9 2015-11-01 Completed University of 00:00:00 [place] [facility] HPV9 2015-11-01 Completed University of 00:00:00 [place] [facility] HPV9 2015-11-01 Completed University of 00:00:00 [place] [facility] HPV9 2015-11-01 Completed University of 00:00:00 [place] [facility] HPV9 2015-11-01 Completed University of 00:00:00 [facility] HPV9 2015-11-01 Completed University of 00:00:00 [facility] HPV9 2015-11-01 Completed University of 00:00:00 [facility] HPV9 2015-11-01 Completed University of 00:00:00 [facility] HPV9 2015-11-01 Completed University of 00:00:00 [facility] HPV9 2015-11-01 Completed University of 00:00:00 [facility] HPV9 2015-11-01 Completed University of 00:00:00 [facility] TDAP 2009-04-08 Completed University of 00:00:00 [facility] TDAP 2009-04-08 Completed University of 00:00:00 [facility] TDAP 2009-04-08 Completed University of 00:00:00 [facility] TDAP 2009-04-08 Completed University of 00:00:00 [facility] TDAP 2009-04-08 Completed University of 00:00:00 [facility] TDAP 2009-04-08 Completed University of 00:00:00 [facility] TDAP 2009-04-08 Completed University of 00:00:00 [facility] TDAP 2009-04-08 Completed University of 00:00:00 [facility] TDAP 2009-04-08 Completed University of 00:00:00 [facility] TDAP 2009-04-08 Completed University of 00:00:00 [facility] TDAP 2009-04-08 Completed University of 00:00:00 [facility] TDAP 2009-04-08 Completed University of 00:00:00 [facility] TDAP 2009-04-08 Completed University of 00:00:00 [facility] TDAP 2009-04-08 Completed University of 00:00:00 [facility] TDAP 2009-04-08 Completed University of 00:00:00 [facility] TDAP 2009-04-08 Completed University of 00:00:00 [facility] TDAP 2009-04-08 Completed University of 00:00:00 [facility] TDAP 2009-04-08 Completed University of 00:00:00 [facility] Vital Signs Vital Name Observation Time Observation Value Comments Source Systolic blood 2021-03-06 20:54:00 118 mm[Hg] Univer sity of pressure [facility] Diastolic blood 2021-03-06 20:54:00 70 mm[Hg] Unive rsity of pressure [facility] Heart rate 2021-03-06 20:54:00 93 /min Universi ty of [place] [facility] Body temperature 2021-03-06 20:54:00 37.06 Consuelo Univ ersity of [place] [facility] Respiratory rate 2021-03-06 20:54:00 18 /min Univ ersity of [place] [facility] Body height 2021-03-06 20:54:00 162.6 cm [facility]i ty [facility] [place] [facility] Body weight 2021-03-06 20:54:00 59.24 kg [facility] [place] [facility] BMI 2021-03-06 20:54:00 22.42 kg/m2 [facility] ty [facility] [place] [facility] Systolic blood 2021-02-27 20:54:00 113 mm[Hg] Univer sity of pressure [facility] Diastolic blood 2021-02-27 20:54:00 71 mm[Hg] Unive rsity of pressure [facility] Heart rate 2021-02-27 20:54:00 80 /min Universi ty [facility] [place] [facility] Body temperature 2021-02-27 20:54:00 35.89 Consuelo Univ ersity of [place] [facility] Respiratory rate 2021-02-27 20:54:00 18 /min Univ ersity of [place] [facility] Body height 2021-02-27 20:54:00 162.6 cm [facility]i [facility] [place] [facility] Body weight 2021-02-27 20:54:00 59.149 kg [facility] [place] [facility] BMI 2021-02-27 20:54:00 22.38 kg/m2 [facility] [place] [facility] Systolic blood 2021-02-20 17:01:00 116 mm[Hg] Univer sity of pressure [facility] Diastolic blood 2021-02-20 17:01:00 72 mm[Hg] Unive rsity of pressure [facility] Heart rate 2021-02-20 17:01:00 97 /min [facility]i ty [facility] [place] [facility] Body temperature 2021-02-20 17:01:00 36.22 Consuelo Univ ersity of [place] [facility] Respiratory rate 2021-02-20 17:01:00 16 /min Univ ersity of [place] [facility] Body height 2021-02-20 17:01:00 162.6 cm [facility]i ty [facility] [place] [facility] Body weight 2021-02-20 17:01:00 58.877 kg [facility]i ty [facility] [place] [facility] BMI 2021-02-20 17:01:00 22.28 kg/m2 [facility] [place] [facility] Systolic blood 2021-02-03 14:02:00 129 mm[Hg] Univer sity of pressure [place] [facility] Diastolic blood 2021-02-03 14:02:00 69 mm[Hg] Unive rsity of pressure [place] [facility] Heart rate 2021-02-03 14:02:00 98 /min Universi ty [facility] [place] [facility] Body temperature 2021-02-03 14:02:00 36.89 Consuelo Univ ersity of [place] [facility] Respiratory rate 2021-02-03 14:02:00 17 /min Univ ersity of [place] [facility] Body height 2021-02-03 14:02:00 162.6 cm [facility]i [facility] [place] [facility] Body weight 2021-02-03 14:02:00 58.196 kg [facility]i [facility] [place] [facility] BMI 2021-02-03 14:02:00 22.02 kg/m2 [facility] [place] [facility] Systolic blood 2021-01-23 17:57:00 109 mm[Hg] Univer sity of pressure [place] [facility] Diastolic blood 2021-01-23 17:57:00 70 mm[Hg] Unive rsity of pressure [place] [facility] Heart rate 2021-01-23 17:57:00 79 /min [facility]i ty [facility] [place] [facility] Body temperature 2021-01-23 17:57:00 36.94 Consuelo Univ ersity of [place] [facility] Respiratory rate 2021-01-23 17:57:00 18 /min Univ ersity of [place] [facility] Body height 2021-01-23 17:57:00 162.6 cm [facility]i [facility] [place] [facility] Body weight 2021-01-23 17:57:00 58.968 kg [facility]i ty [facility] [place] [facility] BMI 2021-01-23 17:57:00 22.31 kg/m2 [facility] [place] [facility] Systolic blood 2021-01-09 19:37:00 118 mm[Hg] Univer sity of pressure [place] [facility] Diastolic blood 2021-01-09 19:37:00 68 mm[Hg] Unive rsity of pressure [place] [facility] Heart rate 2021-01-09 19:37:00 88 /min [facility] Body temperature 2021-01-09 19:37:[address] [facility] Respiratory rate 2021-01-09 19:37:00 16 /min [facility] Body height 2021-01-09 19:37:00 162.6 cm [facility] Body weight 2021-01-09 19:37:00 58.684 kg [facility] BMI 2021-01-09 19:37:00 22.21 kg/m2 [facility] Procedures Procedure Date / Time Performed Performing Clinician Sourc e POCT URINALYSIS 2021-02-27 20:57[facility] 2021-02-20 00:00:00 Vicente [facility] POCT URINALYSIS 2021-02-03 14:10:00 Vicente [facility] GLUCOSE & PROTEIN [facility] FLU VACC ([id number]), 2021-01-23 18:15:26 Yue Mondragon [facility] 2-64 YRS, .5ML, IM, Medical Bran ch QUAD (FLUCELVAX) POCT URINALYSIS W/O 2021-01-23 00:00:00 Yue Mondragon [facility] SPECIFIC GRAVITY [facility] POCT URINALYSIS 2021-01-09 19:52:00 Nicky Zhang [facility] EXTERNAL PROVIDER 2021-01-06 05:01:00 Doctor Unassigned, No [facility] RECORDS Name [facility] Encounters Start End Encounter Admission Attending Care Care Encounter Source Date/Time Date/Time Type Type Clinicians Facility Department ID 2021-04-26 2021-04-26 Outpatient R [facility] [id number] Univers 08:30:00 08:30:00 [id number] [facility] 2021-04-26 2021-04-26 Outpatient P [facility] [id number] Univers 08:30:00 08:30:00 [facility] 2021-04-03 2021-04-03 Outpatient R VICENTE [facility] [id number] Univers 10:15:00 10:15:00 NICKY [id number] ity [facility] 2021-03-28 2021-03-28 Outpatient ONIEL, [facility] [id number] [place] 00:00:00 00:00:00 BURAK Franko t[facility] 2021-03-28 2021-03-28 Outpatient ONIEL, [facility] [id number] [place] 00:00:00 00:00:00 [address] 2021-03-27 2021-03-27 Outpatient R AKINJACK, [facility] [id number] Univers 13:00:00 13:00:00 CELIA [id number] ity o f [facility] 2021-03-27 2021-03-27 Outpatient R EKATERINAPE, [facility] [id number] Univers 13:00:00 13:00:00 CELIA ity o f [facility] 2021-03-20 2021-03-20 Outpatient Mari MONDRAGON [facility] [id number] Univers 09:30:00 09:30:00 YUE [id number] ity [facility] 2021-03-20 2021-03-20 [facility] [id number] Univers 09:30:00 09:30:00 YUE [facility] 2021-03-06 2021-03-06 Routine Vicente, СЕРГЕЙIT [id number] Univers 14:46:51 15:24:59 Nicky HEALTH [id number] ity of Visit [id number] [id number] [id number] Branch 2021-03-06 2021-03-06 Outpatient R VICENTE [facility] [id number] Univers 14:45:00 15:24:59 [facility] [place] [facility] 2021-03-01 2021-03-01 Telephone Vicente, UNIVERSIT [id number] Univers 00:00:00 00:00:00 Nicky Y HEALTH [id number] ity [id number] [id number] [address] 2021-02-28 2021-02-28 Outpatient R [facility] [id number] Univers 14:15:00 14:15:00 [id number] ity of [facility] 2021-02-28 2021-02-28 Outpatient R MICKIE DEUTSCH [facility] [id number] Univers 14:15:00 13:56:50 MICKIE DEUTSCH harriet [facility] 2021-02-28 2021-02-28 Security Operations Engineer Lab, [facility] UNIVERSIT 1.2.84 [id number] [id number] Univers 13:49:02 13:56:50 Visit Mickie Deutsch [facility] [id number] ity of [id number] [id number] [address] 2021-02-28 2021-02-28 Security Operations Engineer 5, [facility] Room UNIVERSIT [id number] .[id number] Univers 13:17:41 13:43:10 Visit Mickie Deutsch [facility] [id number] ity of [id number] [id number] [address] 2021-02-28 2021-02-28 [facility] [id number] Univers 00:00:00 00:00:00 Management [facility] [id number] ity of [id number] [id number] [address] 2021-02-27 2021-02-27 Routine Provider, [facility] 1 .[id number] Univers 14:38:43 16:48:10 Vin Beckford ASSOCIATE TEACHER 350.1.13 .10 ity of Visit REGIONAL 4.2.7.2.686 [place]io as MATERNAL [id number] Med ical & CHILD [address] [place] [address] 2021-02-27 2021-02-27 Outpatient R ULI [facility] [id number] Univers 14:30:00 16:48:10 VIN avendano f [facility] 2021-02-27 2021-02-27 Outpatient R [facility] [id number] Univers 14:30:00 14:30:00 [id number] [facility] 2021-02-25 2021-02-25 Nurse SHYAM Miller [id number] Univers 00:00:00 00:00:00 Triage [id number] [facility] 4.2.7.2.686 [place] [id number] [address] 2021-02-20 2021-02-20 [facility] [id number] Univers 11:00:00 11:29:48 YUE [facility] 2021-02-20 2021-02-20 [facility] [id number] Univers 10:51:39 11:29:48 Yue Bynum ASSOCIATE TEACHER [id number] i ty of Visit [facility] [id number] Gio as MATERNAL [id number] Med ical & CHILD [address] [place] [address] 2021-02-20 2021-02-20 [facility] [id number] Univers 11:00:00 11:00:00 YUE [id number] [facility] 2021-02-13 2021-02-13 Security Operations Engineer [facility] 1.2 .840.114 [id number] Univers 12:47:37 13:17:37 Visit Geraldine Guerrero ASSOCIATE TEACHER [facility]. [facility].10 [facility] [id number] Gio as MATERNAL [id number] [facility] ical & CHILD [address] [place] [address] 2021-02-13 2021-02-13 Outpatient R [facility] [id number] Univers 13:00:00 13:00:00 [id number] [facility] 2021-02-13 2021-02-13 Outpatient P MITCHELL [facility] [id number] Univers 13:00:00 13:00:00 JACKIE palomino y of SGERALDINE [facility] 2021-02-03 2021-02-03 Routine CAMI Zhang [id number] Univers 08:52:24 09:33:22 [facility] [id number] [id number] [address] 2021-02-03 2021-02-03 Outpatient R VICENTE [facility] [id number] Univers 08:45:00 09:33:22 [facility] 2021-02-03 2021-02-03 [facility] [id number] Univers 08:45:00 08:45:00 NICKY [id number] [facility] 2021-02-01 2021-02-01 Telephone СЕРГЕЙ Zhang [id number] Univers 00:00:00 00:00:00 Nicky Y HEALTH [id number] [id number] [address] 2021-01-23 2021-01-23 Routine [facility] [id number] Univers 12:46:11 13:25:24 Yue Bynum ASSOCIATE TEACHER [id number] i ty of Visit REGIONAL 4.2.7.2.686 Gio as MATERNAL [id number] Med ical & CHILD [address] [place] [address] 2021-01-23 2021-01-23 [facility] [id number] Univers 12:45:00 12:45:00 YUE [id number] [facility] 2021-01-23 2021-01-23 Outpatient R ALANNA [facility] [id number] Univers 12:45:00 12:45:00 [facility]UE [facility] 2021-01-12 2021-01-12 Outpatient R [facility] [id number] Univers 10:30:00 10:30:00 [id number] ity [facility] 2021-01-12 2021-01-12 Outpatient R [facility] [id number] Univers 10:30:00 10:30:00 ity [facility] 2021-01-10 2021-01-[address] [facility] [id number] Univers 00:00:00 00:00:00 Celia C ASSOCIATE TEACHER [id number] ity of REGIONAL 4.2.7.2.686 [place]io as MATERNAL [id number] [facility] & CHILD [address] [place] [address] 2021-01-10 2021-01-10 Telephone [place], СЕРГЕЙ [id number] Univers 00:00:00 00:00:00 Nicky Y HEALTH [id number] [id number] [address] 2021-01-09 2021-01-[address] [facility] [id number] Univers 14:05:25 14:20:25 Celia Barry ASSOCIATE TEACHER [id number] ity of Visit REGIONAL 4.2.7.2.686 [place] as MATERNAL [id number] [facility] & [address] 2021-01-09 2021-01-09 Outpatient R AKINPE, [facility] [id number] Univers 14:15:00 14:15:00 CELIA [id number] ity o [facility] 2021-01-09 2021-01-09 Outpatient R AKINPE, [facility] [id number] Univers 14:15:00 14:15:00 CELIA ity o f [facility] 2021-01-07 2021-01-07 Telephone Vicente, СЕРГЕЙ [id number] Univers 00:00:00 00:00:00 Nicky Y HEALTH [id number] [id number] [address] 2021-01-06 2021-01-06 Telephone Vicente, UNIVERSIT 1.2.840.114 [id number] Univers 00:00:00 00:00:00 Nicky Y HEALTH [id number] it[place] [id number] [facility] [address] 2021-01-06 2021-01-06 Orders Doctor SHYAM [id number] Univers 00:00:00 00:00:00 Only Unassigned, GABBIE 350.1.13.10 ity of [facility] 4.2.7.2.686 [place] as [id number] [facility] [address] 2021-01-05 2021-01-05 Outpatient VICENTE [facility] [id number] Univers 09:00:00 09:00:00 NICKY [id number] [facility] 2021-01-05 2021-01-05 [facility] [id number] Univers 09:00:00 09:00:00 NICKY [facility] 2017-03-08 2017-03-08 Emergency E BA, [facility] [id number] 19[facility]58[facility]00 [facility] Results Test Description Test Time Test Comments Results Result Comments Source POCT URINALYSIS W SPECIFIC GRAVITY 2021-02-27 20:57:00 Test Item Value Reference Range Interpretation Comme nts POCT U SP GRAV (test code = 3255) * 1.005-1.025 POCT PH U (test code = 3254) * 5-8 POCT U LEUK EST (test code = 3263) * Negative - Negative POCT U NIT (test code = 3262) * Negative - Negative POCT U PROT (test code = 3259) NEGATIVE Negative - Negative POCT U GLU (test code = 3256) NEGATIVE Negative - Negative POCT U KETONE (test code = 3258) * Negative - Negative POCT U UROBILI (test code = 3260) * 0.2-1 POCT U BILI (test code = 3261) * Negative - Negative POCT U BLD (test code = 3257) * Negative - Negative POCT U COLOR (test code = 3266) POCT U APPEAR (test code = 3267) [facility] [id number] 17:04:00 Test Item Value Reference Range Interpretation Comments POCT U SP GRAV (test code = 3255) - 1.005-1.025 POCT PH U (test code = 3254) - 5-8 POCT U LEUK EST (test code = 3263) - Negative - Negative POCT U NIT (test code = 3262) - Negative - Negative POCT U PROT (test code = 3259) trace Negative - Negative POCT U GLU (test code = 3256) normal Negative - Negative POCT U KETONE (test code = 3258) - Negative - Negative POCT U UROBILI (test code = 3260) - 0.2-1 POCT U BILI (test code = 3261) - Negative - Negative POCT U BLD (test code = 3257) - Negative - Negative POCT U COLOR (test code = 3266) POCT U APPEAR (test code = 3267) [facility] URINALYSIS GLUCOSE & PROTEIN 2021-02-03 14:10:00 Test Item Value Reference Range Interpretation Comments POCT U PROT (test code = 3259) negative Negative - Negative POCT U GLU (test code = 3256) negative Negative - Negative Lab Interpretation (test code = Normal [id number]) [facility] URINALYSIS W/O SPECIFIC [id number] 17:59:00 Test Item Value Reference Range Interpretation Comments POCT PH U (test code = 3254) 7 mg/dl 5-8 POCT U LEUK EST (test code = Negative - Negative 3263) POCT U NIT (test code = 3262) neg Negative - Negative POCT U PROT (test code = 3259) neg Negative - Negative POCT U GLU (test code = 3256) neg Negative - Negative POCT U KETONE (test code = 3258) neg Negative - Negative POCT U BLD (test code = 3257) neg Negative - Negative [facility] URINALYSIS W SPECIFIC [id number] 19:52:00 Test Item Value Reference Range Interpretation Comments POCT U SP GRAV (test code = 3255) . 1.005-1.025 POCT PH U (test code = 3254) . 5-8 POCT U LEUK EST (test code = 3263) . Negative - Negative POCT U NIT (test code = 3262) . Negative - Negative POCT U PROT (test code = 3259) . Negative - Negative POCT U GLU (test code = 3256) . Negative - Negative POCT U KETONE (test code = 3258) . Negative - Negative POCT U UROBILI (test code = 3260) . 0.2-1 POCT U BILI (test code = 3261) . Negative - Negative POCT U BLD (test code = 3257) . Negative - Negative POCT U COLOR (test code = 3266) POCT U APPEAR (test code = 3267) [facility]
[2021-04-02 23:38] LABS: Hematocrit 36.6 % (36.0-45.0); Lymphocytes % 31.4 % (15.3-44.8); MPV 8.9 fL (7.6-11.3); RBC Red Blood Cell Count 4.04 M/uL (3.86-4.86)
[2021-04-02 23:53] LABS: BUN Blood Urea Nitrogen 11 mg/dL (7-18); Bicarbonate 26 mmol/L (21-32); Glucose Level 89 mg/dL (74-106); Potassium 3.3 mmol/L (3.5-5.1); Sodium Level 139 mmol/L (136-145)
[2021-04-03 00:01] LABS: Urine Blood 3+ (Negative); Urine Glucose Negative (Negative); Urine Protein Negative (Negative); Urine Specific Gravity >=1.030 (1.005-1.030)
--- NOTE | 2021-04-03 00:31 | ER ---
Nurse's Notes [facility] Name: Beckie Carrillo Age: 26 yrs Sex: Female : 1995 Arrival Date: 04/02/2021 Time: 22:20 Bed 7 Private MD: Diagnosis: Pelvic pain. Vaginal bleeding;Pelvic pain. Vaginal bleeding. 2 nd Trimester Presentation: 04/02 23:04 Chief complaint: Patient states: is 17 weeks and started having cramping and iw vaginal bleeding started a few hours ago. Coronavirus screen: At this time, the client does not indicate any symptoms associated with coronavirus-19. Ebola Screen: Patient negative for fever greater than or equal to 101.5 degrees Fahrenheit, and additional compatible Ebola Virus Disease symptoms Patient denies exposure to infectious person. Patient denies travel to an Ebola-affected area in the 21 days before illness onset. No symptoms or risks identified at this time. Initial Sepsis Screen: Does the patient meet any 2 criteria? No. Patient's initial sepsis screen is negative. Does the patient have a suspected source of infection? No. Patient's initial sepsis screen is negative. Risk Assessment: Do you want to hurt yourself or someone else? Patient reports no desire to harm self or others. Onset of symptoms was April 02, 2021. 23:04 Method Of Arrival: Ambulatory iw 23:04 Acuity: ANDREW 3 iw Triage Assessment: 04/03 00:44 General: Appears uncomfortable. Pain: Complains of pain in abdomen. sv1 00:44 General: Behavior is cooperative. : Reports pain with urination. sv1 00:45 : Reports vaginal bleeding that is bright red. 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 - Social history:: Smoking status: Patient denies any tobacco usage or history of. Screenin/27 00:37 Abuse screen: none. Nutritional screening: No deficits noted. Tuberculosis screening: sv1 No symptoms or risk factors identified. Fall Risk None identified. Assessment: 00:45 : Reports cramping. sv1 00:46 Reassessment: All labs completed. he patient was examined by and cleared for discharge sv1 to home by the provider. Tolerated po meds well. . Vital Signs: 04/02 23:04 BP 115 / 71; Pulse 87; Resp 16; Temp 98.2; Pulse Ox 100% on R/A; Weight 60.33 kg; iw Height 5 ft. 4 in. (162.56 cm); 04/03 00:37 BP 114 / 81; Pulse 90; Resp 16; Temp 98.6; Pulse Ox 100% 0 lpm ; Pain 2/10; sv1 04/02 23:04 Body Mass Index 22.83 (60.33 kg, 162.56 cm) ED Course: 04/02 22:20 Patient arrived in ED. bp1 23:04 Triage completed. iw 23:05 Arm band placed on. iw 23:15 Initial lab(s) drawn, by nm, sent to lab. Inserted saline lock: 20 gauge in left kj1 antecubital area, using aseptic technique. Blood collected. 23:17 Ned Patel MD is Attending Physician. pkl 23:21 Mahad Jansen, JUAN CARLOS is Primary Nurse. sv1 04/03 00:15 OB Limited In Process Unspecified. EDMS 00:32 Urine Dipstick-Ancillary Sent. sv1 00:37 Patient has correct armband on for positive identification. Bed in low position. Call sv1 light in reach. Side rails up X 1. Adult w/ patient. 00:37 No provider procedures requiring assistance completed. Patient did not have IV access sv1 during this emergency room visit. Administered Medications: 00:35 Drug: K-Dur (potassium chloride) 20 mEq Route: PO; sv1 Outcome: 00:30 Discharge ordered by . pkl 00:37 Discharged to home sv1 00:37 Condition: good 00:37 Discharge instructions given to patient, family. 00:48 Patient left the ED. sv1 Signatures: Dispatcher [employer] EDMS Ned Patel MD MD pkl Haley Tomlinson RN RN iw Marguerite Mae kj1 Joanne Lizarraga bp1 Mahad Jansen, RN RN sv1
--- NOTE | 2021-04-03 00:32 | EDPHYS ---
Physician Documentation [facility] Name: Beckie Carrillo Age: 26 yrs Sex: Female : 1995 Arrival Date: 04/02/2021 Time: 22:20 Bed 7 Private MD: ED Physician Ned Patel HPI: 04/03 00:20 This 26 yrs old Female presents to ER via Ambulatory with complaints of pkl Vaginal Bleeding, Cramping, + 17 weeks preg. 00:20 The patient presents with pelvic pain, that is located in/on the cramping, vaginal pkl bleeding that is light. Onset: The symptoms/episode began/occurred just prior to arrival, 3 hour(s) ago. Associated signs and symptoms: The patient has no apparent associated signs or symptoms. 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 - Social history:: Smoking status: Patient denies any tobacco usage or history of. ROS: 04/03 00:20 Positive for pelvic pain, vaginal bleeding. pkl Eyes: Negative for injury, pain, redness, and discharge, ENT: Negative for injury, pain, and discharge, Neck: Negative for injury, pain, and swelling, Cardiovascular: Negative for chest pain, palpitations, and edema, Respiratory: Negative for shortness of breath, cough, wheezing, and pleuritic chest pain. Abdomen/GI: Positive for abdominal cramps. Back: Negative for acute changes. : Positive for vaginal bleeding. MS/extremity: Negative for acute changes. Skin: Negative for rash. Neuro: Negative for altered mental status, loss of consciousness. Exam: 00:20 Head/Face: Normocephalic, atraumatic. Eyes: Pupils equal round and reactive to light, pkl extra-ocular motions intact. Lids and lashes normal. Conjunctiva and sclera are non-icteric and not injected. Cornea within normal limits. Periorbital areas with no swelling, redness, or edema. ENT: Nares patent. No nasal discharge, no septal abnormalities noted. Tympanic membranes are normal and external auditory canals are clear. Oropharynx with no redness, swelling, or masses, exudates, or evidence of obstruction, uvula midline. Mucous membranes moist. Neck: Trachea midline, no thyromegaly or masses palpated, and no cervical lymphadenopathy. Supple, full range of motion without nuchal rigidity, or vertebral point tenderness. No Meningismus. Chest/axilla: Normal chest wall appearance and motion. Nontender with no deformity. No lesions are appreciated. Cardiovascular: Regular rate and rhythm with a normal S1 and S2. No gallops, murmurs, or rubs. Normal PMI, no JVD. No pulse deficits. Respiratory: Lungs have equal breath sounds bilaterally, clear to auscultation and percussion. No rales, rhonchi or wheezes noted. No increased work of breathing, no retractions or nasal flaring. Abdomen/GI: Soft, non-tender, with normal bowel sounds. No distension or tympany. No guarding or rebound. No evidence of tenderness throughout. Back: No spinal tenderness. No costovertebral tenderness. Full range of motion. 00:20 : Pelvic Exam: bimanual exam reveals No active bleeding noted, a female scientific diver was present for the exam. 00:20 Musculoskeletal/extremity: Exam is negative for acute changes. 00:20 Skin: Exam negative for rash. 00:20 Neuro: Orientation: is normal, Mentation: is normal, Cranial nerves: grossly normal, Motor: is normal, Gait: is steady. Vital Signs: 04/02 23:04 BP 115 / 71; Pulse 87; Resp 16; Temp 98.2; Pulse Ox 100% on R/A; Weight 60.33 kg; iw Height 5 ft. 4 in. (162.56 cm); 04/03 00:37 BP 114 / 81; Pulse 90; Resp 16; Temp 98.6; Pulse Ox 100% 0 lpm ; Pain 2/10; sv1 04/02 23:04 Body Mass Index 22.83 (60.33 kg, 162.56 cm) iw MDM: 04/02 23:17 Patient medically screened. pkl 04/03 00:26 Data reviewed: vital signs, nurses notes, lab test result(s), radiologic studies, pkl ultrasound. ED course: Patient feeling better. Discussed lab and imaging studies with patient. Advised to follow up with her Ob - Microstrategy Bi Developer in 1 to 2 days. To return if necessary. Patient understood instructions. 04/02 23:06 Order name: Abo/rh Typing; Complete Time: 00:14 04/02 23:06 Order name: Basic Metabolic Panel; Complete Time: 00:14 04/02 23:06 Order name: CBC with Diff; Complete Time: 00:14 04/03 00:01 Order name: Urine Dipstick-Ancillary; Complete Time: 00:14 EDHI 04/03 00:05 Order name: Urine Dipstick-Ancillary [facility] 04/03 00:06 Order name: Urine --Ancillary (enter results); Complete Time: 01:20 [facility] 04/02 23:06 Order name: IV Saline Lock; Complete Time: 23:22 04/02 23:06 Order name: Labs collected and sent; Complete Time: 23:48 04/02 23:06 Order name: NPO; Complete Time: 23:22 04/02 23:06 Order name: Urine Dipstick-Ancillary (obtain specimen); Complete Time: 23:49 04/02 23:31 Order name: Heart Tones pkl 04/03 00:15 Order name: OB Limited EDHI Administered Medications: 00:35 Drug: K-Dur (potassium chloride) 20 mEq Route: PO; sv1 Disposition Summary: 04/03/21 00:30 Discharge Ordered Location: Home pkl Problem: new pkl Symptoms: have improved pkl Condition: Stable pkl Diagnosis - Pelvic pain. Vaginal bleeding pkl - Pelvic pain. Vaginal bleeding. 2 nd Trimester pkl Followup: pkl - With: Private Physician - When: 1 - 2 days - Reason: Re-evaluation by your physician Forms: - Medication Reconciliation Form pkl - Thank You Letter pkl - Antibiotic Education pkl - Prescription Opioid Use pkl Signatures: Dispatcher [employer] EDNed Ortiz MD MD pkl Haley Tomlinson RN RN Mahad Jansen RN RN sv1 Corrections: (The following items were deleted from the chart) 00:15 04/02 23:36 Transvaginal Study (Probe)+US.RAD.[email or web address] ordered. EDMS EDMS
[2021-04-03] MEDS ORDERED: POTASSIUM CL SA 10 MEQ TAB PO ONE (00:35)
[2021-04-03 00:38] LABS: Urine Specific Gravity/Preg >1.030 (1.005-1.030)
[2021-04-03 01:18] VITALS: O2SAT 100
[2021-04-03 01:19] VITALS: BP 114/81; TEMP 98.6
--- NOTE | 2021-04-03 08:06 | RAD REPORT ---
EXAM DESCRIPTION: US - OB Limited - 04/03/2021 12:15 am CLINICAL HISTORY: Abd cramping, ;Vaginal bleeding Preliminary findings were provided at the time of the study. [employer] report could not be provided d ue to technical factors. This factor delayed this final written report. COMPARISON: Transvaginal OB dated 02/01/2021 FINDINGS: Single intrauterine gestation is identified on this limited examination. Heart rate was 15 4 BPM. Humerus length measurement indicated approximately 17 week 4 day age. No gross anatomic abnormality seen. Amniotic fluid volume is normal. Placenta shows no abruption or m arginal hematoma. Cervical canal is 3.5 cm in length with closed internal os. IMPRESSION: Unremarkable single IUP approximately 17 weeks 4 days in age. This is a limited as sessment. No placenta, amniotic fluid or cervical canal abnormality.
== END 2021-04-03 00:48 | disposition home or self-care (01) ==
LOC: ER 22:18
DX: O20.9 Hemorrhage in early pregnancy, unspecified (principal); Z3A.17 17 weeks gestation of pregnancy
CPT/HCPCS: 36415; 76815; 80048; 81003; 81025; 85025; 86900; 86901; 99284

== ENCOUNTER 2021-08-27 07:51 | Emergency (ER) | payer OTHER ==
--- OUTSIDE RECORDS SUMMARY | 2021-08-27 07:54 | XMS REPORT | Continuity of Care Document ---
:1995 Author Organization [facility] t Address [address] [place] [address] Care Team Providers Name Role Phone Jhonny CHOU Primary Care Physician Unavailable ONIEL Attending Clinician Unavailable VICENTE Attending Clinician Unavailable Jhonny CHOU Attending Clinician Unavailable Fletcher MONDRAGON Attending Clinician Unavailable Vicente CALVO Attending Clinician Amber DEUTSCH Attending Clinician Unavailable Amber DEUTSCH Attending Clinician Unavailable Lab Attending Clinician Unavailable Aaron ROBERT M Attending Clinician 5, M[facility] Usg Room Attending Clinician Unavailable Bruno TAN Attending Clinician Provider, Temp Attending Clinician Unavailable Uli IRWIN O Attending Clinician Romana MCNALLY Attending Clinician Unavailable Paul RANGEL, L Attending Clinician Unavailable Alanna TAN, N Attending Clinician Ultrasound Attending Clinician Unavailable Mitchell Bennett MD Attending Clinician MITCHELL BENNETT Attending Clinician Unavailable Jhonny Spangler Attending Clinician Doctor Unassigned, Name Attending Clinician Unavailable DR ESTELLA Attending Clinician Unavailable ONIEL Admitting Clinician Unavailable DR ESTELLA Admitting Clinician Unavailable Payers Payer Name Policy Type Policy Number Effective Date Expiration Date Meli URBINAS [id number] 2015 HEALTH 00:00:00 Problems Condition Condition Condition Status Onset Resolution Last Treating Co mments Source Name Details Category Date Date Treatment Clinician Date Cramping Cramping Disease Active 2020-04 Unive rs affecting affecting 1-15 ity of , , [place] ante[place] antepartum 00 [facility] Supervisio Supervisio Disease Active 2020-04 U nivers n of n of 0-04 ity of high-risk [facility] Vaginal Vaginal Disease Active 2020-04 Univers bleeding bleeding 0-04 ity of in in 00:00: [place] 00 [facility] History of History of Disease Active 2020-04 U nivers miscarriag miscarriag 0-04 it y of e e 00:00: [address] Dyspareuni Dyspareuni Disease Active U nivers a in a in 4-16 ity of female female 00:00: [address] Allergies, Adverse Reactions, Alerts Allergy Allergy Status Severity Reaction(s) Onset Inactive Treating Comm ents Source Name Type Date Date Clinician NO KNOWN Drug Active Univers ALLERGIE Class ity of S [facility] Social History Social Habit Start Date Stop Date Quantity Comments Source ASSERTION 2020-12-17 University of 00:00:00 [facility] History [facility] University o f Alcohol Frequency [facility] [place] History [facility] University o f Alcohol Std Drinks [facility] History [facility] o f Alcohol Binge [facility] [place] Exposure to Not sure University of SARS-CoV-2 (event) [facility] Alcohol intake 2021-03-06 2021-03-06 0 /d University of 00:00:00 00:00:00 [facility] Alcohol Comment 2017-07-22 2017-07-22 on occassion Univers ity of 00:00:00 00:00:00 [facility] Tobacco use and 2015-11-01 2015-11-01 Never used Universit y of exposure 00:00:00 00:00:00 [facility] Sex Assigned At [birth year] Universit y of 00:00:00 00:00:00 [facility] Smoking Status Start Date Stop Date Source Never smoker [facility] Medications Ordered Filled Start Stop Current Ordering Indication Dosage Frequency Signature Comments Components Source Medication Medication Date Date Medication? Clinician (SIG) Name Name Yes [id number] 1{packe Take 1 Univers vit 9-30 t} Packet by ity of 33-iron-fol 00:00: mouth [place] ic-dha 00 daily. Medical ([facility] + DHA) 29 mg iron-1 mg -250 mg combo pack Yes [id number] 1{packe Take 1 Univers vit 9-30 t} Packet by ity of 33-iron-fol 00:00: mouth [place] ic-dha 00 daily. Medical ([facility] + DHA) 29 mg iron-1 mg -250 mg combo pack Yes [id number] 1{packe Take 1 Univers vit 9-30 t} Packet by ity of 33-iron-fol 00:00: mouth [place] ic-dha 00 daily. Medical ([facility] + DHA) 29 mg iron-1 mg -250 mg combo pack Yes [id number] 1{packe Take 1 Univers vit 9-30 t} Packet by ity of 33-iron-fol 00:00: mouth [place] ic-dha 00 daily. Medical ([facility] + DHA) 29 mg iron-1 mg -250 mg combo pack Yes [id number] 1{packe Take 1 Univers vit 9-30 t} Packet by ity of 33-iron-fol 00:00: mouth [place] ic-dha daily. Medical ([facility] + DHA) 29 mg iron-1 mg -250 mg combo pack Yes [id number] 1{packe Take 1 Univers vit 9-30 t} Packet by ity of 33-iron-fol 00:00: mouth [place] ic-dha 00 daily. Medical ([facility] + DHA) 29 mg iron-1 mg -250 mg combo pack Yes [id number] 1{packe Take 1 Univers vit 9-30 t} Packet by ity of 33-iron-fol 00:00: mouth [place] ic-dha 00 daily. Medical ([facility] + DHA) 29 mg iron-1 mg -250 mg combo pack Yes [id number] 1{packe Take 1 Univers vit 9-30 t} Packet by ity of 33-iron-fol 00:00: mouth [place] ic-dha 00 daily. Medical ([facility] + DHA) 29 mg iron-1 mg -250 mg combo pack Yes [id number] 1{packe Take 1 Univers vit 9-30 t} Packet by ity of 33-iron-fol 00:00: mouth [place] ic-dha 00 daily. Medical ([facility] + DHA) 29 mg iron-1 mg -250 mg combo pack Yes [id number] 1{packe Take 1 Univers vit 9-30 t} Packet by ity of 33-iron-fol 00:00: mouth [place] ic-dha 00 daily. Medical ([facility] + DHA) 29 mg iron-1 mg -250 mg combo pack Yes [id number] 1{packe Take 1 Univers vit 9-30 t} Packet by ity of 33-iron-fol 00:00: mouth [place] ic-dha 00 daily. Medical ([facility] + DHA) 29 mg iron-1 mg -250 mg combo pack Yes [id number] 1{packe Take 1 Univers vit 9-30 t} Packet by ity of 33-iron-fol 00:00: mouth [place] ic-dha 00 daily. Medical ([facility] + DHA) 29 mg iron-1 mg -250 mg combo pack Yes [id number] 1{packe Take 1 Univers vit 9-30 t} Packet by ity of 33-iron-fol 00:00: mouth [place] ic-dha 00 daily. Medical ([facility] + DHA) 29 mg iron-1 mg -250 mg combo pack Yes [id number] 1{packe Take 1 Univers vit 9-30 t} Packet by ity of 33-iron-fol 00:00: mouth [place] ic-dha 00 daily. Medical ([facility] + DHA) 29 mg iron-1 mg -250 mg combo pack Yes [id number] 1{packe Take 1 Univers vit 9-30 t} Packet by ity of 33-iron-fol 00:00: mouth [place] ic-dha 00 daily. Medical ([facility] + DHA) 29 mg iron-1 mg -250 mg combo pack Yes [id number] 1{packe Take 1 Univers vit 9-30 t} Packet by ity of 33-iron-fol 00:00: mouth [place] ic-dha 00 daily. Medical ([facility] + DHA) 29 mg iron-1 mg -250 mg combo pack 0 Yes [id number] 1{packe Take 1 Univers vit 9-30 t} Packet by ity of 33-iron-fol 00:00: mouth [place] ic-dha 00 daily. Medical ([facility] + DHA) 29 mg iron-1 mg -250 mg combo pack Yes [id number] 1{packe Take 1 Univers vit 9-30 t} Packet by ity of 33-iron-fol 00:00: mouth [place] ic-dha 00 daily. Medical ([facility] + DHA) 29 mg iron-1 mg -250 mg combo pack Immunizations Ordered Filled Immunization Date Status Comments [facility] e Immunization Name Name Influenza Virus [...] YRS HPV9 2016-05-18 Completed University of 00:00:00 [facility] HPV9 2016-05-18 Completed University of 00:00:00 [facility] HPV9 2016-05-18 Completed University of 00:00:00 [facility] HPV9 2016-05-18 Completed University of 00:00:00 [facility] HPV9 2016-05-18 Completed University of 00:00:00 [facility] HPV9 2016-05-18 Completed University of 00:00:00 [facility] HPV9 2016-05-18 Completed University of 00:00:00 [facility] HPV9 2016-05-18 Completed University of 00:00:00 [facility] HPV9 2016-05-18 Completed University of 00:00:00 [facility] HPV9 2016-05-18 Completed University of 00:00:00 [facility] HPV9 2016-05-18 Completed University of 00:00:00 [facility] HPV9 2016-05-18 Completed University of 00:00:00 [facility] HPV9 2016-05-18 Completed University of 00:00:00 [facility] HPV9 2016-05-18 Completed University of 00:00:00 [facility] HPV9 2016-05-18 Completed University of 00:00:00 [facility] HPV9 2016-05-18 Completed University of 00:00:00 [facility] HPV9 2016-05-18 Completed University of 00:00:00 [facility] HPV9 2016-05-18 Completed University of 00:00:00 [facility] HPV9 2016-01-03 Completed University of 00:00:00 [facility] HPV9 2016-01-03 Completed University of 00:00:00 [place] [facility] HPV9 2016-01-03 Completed University of 00:00:00 [facility] HPV9 2016-01-03 Completed University of 00:00:00 [facility] HPV9 2016-01-03 Completed University of 00:00:00 [facility] HPV9 2016-01-03 Completed University of 00:00:00 [facility] HPV9 2016-01-03 Completed University of 00:00:00 [facility] HPV9 2016-01-03 Completed University of 00:00:00 [facility] HPV9 2016-01-03 Completed University of 00:00:00 [facility] HPV9 2016-01-03 Completed University of 00:00:00 [facility] HPV9 2016-01-03 Completed University of 00:00:00 [facility] HPV9 2016-01-03 Completed University of 00:00:00 [facility] HPV9 2016-01-03 Completed University of 00:00:00 [facility] HPV9 2016-01-03 Completed University of 00:00:00 [facility] HPV9 2016-01-03 Completed University of 00:00:00 [facility] HPV9 2016-01-03 Completed University of 00:00:00 [facility] HPV9 2016-01-03 Completed University of 00:00:00 [facility] HPV9 2016-01-03 Completed University of 00:00:00 [facility] HPV9 2015-11-01 Completed University of 00:00:00 [place] [facility] HPV9 2015-11-01 Completed University of 00:00:00 [facility] HPV9 2015-11-01 Completed University of 00:00:00 [facility] HPV9 2015-11-01 Completed University of 00:00:00 [facility] HPV9 2015-11-01 Completed University of 00:00:00 [place] [facility] HPV9 2015-11-01 Completed University of 00:00:00 [place] [facility] HPV9 2015-11-01 Completed University of 00:00:00 [facility] HPV9 2015-11-01 Completed University of 00:00:00 [place] [facility] HPV9 2015-11-01 Completed University of 00:00:00 [place] [facility] HPV9 2015-11-01 Completed University of 00:00:00 [place] [facility] HPV9 2015-11-01 Completed University of 00:00:00 [place] [facility] HPV9 2015-11-01 Completed University of 00:00:00 [facility] HPV9 2015-11-01 Completed University of 00:00:00 [facility] HPV9 2015-11-01 Completed University of 00:00:00 [facility] HPV9 2015-11-01 Completed University of 00:00:00 [facility] HPV9 2015-11-01 Completed University of 00:00:00 [facility] HPV9 2015-11-01 Completed University of 00:00:00 [facility] HPV9 2015-11-01 Completed University of 00:00:00 [facility] TDAP 2009-04-08 Completed University of 00:00:00 [facility] TDAP 2009-04-08 Completed University of 00:00:00 [facility] TDAP 2009-04-08 Completed University of 00:00:00 [facility] TDAP 2009-04-08 Completed University of 00:00:00 [facility] TDAP 2009-04-08 Completed University of 00:00:00 [facility] TDAP 2009-04-08 Completed University of 00:00:00 [facility] TDAP 2009-04-08 Completed University of 00:00:00 [facility] TDAP 2009-04-08 Completed University of 00:00:00 [facility] TDAP 2009-04-08 Completed University of 00:00:00 [facility] TDAP 2009-04-08 Completed University of 00:00:00 [facility] TDAP 2009-04-08 Completed University of 00:00:00 [facility] TDAP 2009-04-08 Completed University of 00:00:00 [facility] TDAP 2009-04-08 Completed University of 00:00:00 [facility] TDAP 2009-04-08 Completed University of 00:00:00 [facility] TDAP 2009-04-08 Completed University of 00:00:00 [facility] TDAP 2009-04-08 Completed University of 00:00:00 [facility] TDAP 2009-04-08 Completed University of 00:00:00 [facility] TDAP 2009-04-08 Completed University of 00:00:00 [facility] Vital Signs Vital Name Observation Time Observation Value Comments Source Systolic blood 2021-03-06 20:54:00 118 mm[Hg] Univer sity of pressure [facility] Diastolic blood 2021-03-06 20:54:00 70 mm[Hg] Unive [...] 2021-03-06 20:54:00 22.42 kg/m2 [facility] [place] [facility] Systolic blood 2021-02-27 20:54:00 113 mm[Hg] Univer sity of pressure [place] [facility] Diastolic blood 2021-02-27 20:54:00 71 mm[Hg] Unive rsity of pressure [facility] Heart rate 2021-02-27 20:54:00 80 /min [facility]i [facility] [place] [facility] Body temperature 2021-02-27 20:54:00 35.89 Consuelo Univ ersity of [place] [facility] Respiratory rate 2021-02-27 20:54:00 18 /min Univ ersity of [place] [facility] Body height 2021-02-27 20:54:00 162.6 [...] 2021-02-20 17:01:00 16 /min Univ ersity of [place] [facility] Body height 2021-02-20 17:01:00 162.6 cm [facility] [place] [facility] Body weight 2021-02-20 17:01:00 58.877 kg [facility] [place] [facility] BMI 2021-02-20 17:01:00 22.28 kg/m2 [facility] [place] [facility] Systolic blood 2021-02-03 14:02:00 129 mm[Hg] Univer sity of pressure [place] [facility] Diastolic blood 2021-02-03 14:02:00 69 mm[Hg] Unive rsity of pressure [place] [facility] Heart rate 2021-02-03 14:02:00 98 /min [facility] [place] [facility] Body temperature 2021-02-03 14:02:00 36.89 Consuelo Univ ersity of [place] [facility] Respiratory rate 2021-02-03 14:02:00 17 /min Univ ersity [facility] [place] [facility] Body height 2021-02-03 14:02:00 162.6 cm [facility] [place] [facility] Body weight 2021-02-03 14:02:00 58.196 kg [facility] [place] [facility] BMI 2021-02-03 14:02:00 22.02 kg/m2 [facility] [place] [facility] Systolic blood 2021-01-23 17:57:00 109 mm[Hg] Univer sity of pressure [place] [facility] Diastolic blood 2021-01-23 17:57:00 70 mm[Hg] Unive rsity of pressure [place] [facility] Heart rate 2021-01-23 17:57:00 79 /min [facility] [place] [facility] Body temperature 2021-01-23 17:57:00 36.94 Consuelo Univ ers[facility] [place] [facility] Respiratory rate 2021-01-23 17:57:00 18 /min Univ ers[facility] [place] [facility] Body height 2021-01-23 17:57:00 162.6 cm [facility] [place] [facility] Body weight 2021-01-23 17:57:00 58.968 kg [facility] [place] [facility] BMI 2021-01-23 17:57:00 22.31 kg/m2 [facility] [place] [facility] Systolic blood 2021-01-09 19:37:00 118 mm[Hg] Univer sity of pressure [place] [facility] Diastolic blood 2021-01-09 19:37:00 68 mm[Hg] Unive rsity of pressure [place] [facility] Heart rate 2021-01-09 19:37:00 88 /min [facility] Body temperature 2021-01-09 19:37:[address] [facility] Respiratory rate 2021-01-09 19:37:00 16 /min [facility] Body height 2021-01-09 19:37:00 162.6 cm [facility] Body weight 2021-01-09 19:37:00 58.684 kg [facility] BMI 2021-01-09 19:37:00 22.21 kg/m2 [facility] Procedures Procedure Date / Time Performed Performing Clinician Sourc e POCT URINALYSIS 2021-02-27 20:57:00 Vicente Nicky [facility] POCT URINALYSIS 2021-02-20 00:00:00 Vicente [facility] POCT URINALYSIS 2021-02-03 14:10:00 Vicente [facility] GLUCOSE & PROTEIN [facility] FLU VACC ([id number]), 2021-01-23 18:15:26 Yue Mondragon [facility] 2-64 YRS, .5ML, IM, Medical Bran ch QUAD (FLUCELVAX) POCT URINALYSIS W/O 2021-01-23 00:00:00 Yue Mondragon [facility] SPECIFIC GRAVITY [facility] POCT URINALYSIS 2021-01-09 19:52:00 Nicky Zhang [facility] EXTERNAL PROVIDER 2021-01-06 05:01:00 Doctor Unassigned, No [facility] RECORDS Name [facility] Encounters Start End Encounter Admission Attending Care Care Encounter Source Date/Time Date/Time Type Type Clinicians Facility Department ID 2021-08-21 2021-08-25 Inpatient [facility] [id number] [place] 00:00:00 00:00:00 [place] [address] 2021-08-15 2021-08-15 Outpatient [facility] [id number] [place] 00:00:00 00:00:[address] [address] 2021-08-09 2021-08-09 Outpatient [facility] [id number] [place] 00:00:00 00:00:00 [place] [address] 2021-07-24 2021-07-24 Outpatient ONIEL, [facility] [id number] [place] 00:00:00 00:00:00 BURAK [address] 2021-07-06 2021-07-06 Outpatient ONIEL, [facility] [id number] [place] 00:00:00 00:00:00 [place] [address] 2021-07-06 2021-07-06 Outpatient ONIEL, [facility] [id number] [place] 00:00:00 00:00:00 [place] [address] 2021-06-07 2021-06-07 Outpatient ONIEL, [facility] [id number] [place] 00:00:00 00:00:00 BURAK [address] 2021-05-08 2021-05-08 Outpatient ONIEL, [facility] [id number] [place] 00:00:00 00:00:00 BURAK [address] 2021-04-26 2021-04-26 Outpatient R [facility] [id number] [facility] 08:30:00 08:30:00 [id number] [facility] 2021-04-26 2021-04-26 Outpatient P [facility] [id number] Univers 08:30:00 08:30:00 [facility] 2021-04-03 2021-04-03 Outpatient R VICENTE, [facility] [id number] [facility] 10:15:00 10:15:00 NICKY [id number] [facility] 2021-03-28 2021-03-28 Outpatient ONIEL, [facility] [id number] [place] 00:00:00 00:00:00 [place] [address] 2021-03-28 2021-03-28 Outpatient ONIEL, [facility] [id number] [place] 00:00:00 00:00:00 BURAK [address] 2021-03-27 2021-03-27 Outpatient R AKINSIPE, [facility] [id number] Univers 13:00:00 13:00:00 CELIA [id number] ity o f [facility] 2021-03-27 2021-03-27 Outpatient R AGATHA, [facility] [id number] Univers 13:00:00 13:00:00 CELIA ity o f [facility] 2021-03-20 2021-03-20 Outpatient R ALANNA, [facility] [id number] Univers 09:30:00 09:30:00 YUE [id number] ity [facility] 2021-03-20 2021-03-20 [facility] [id number] Univers 09:30:00 09:30:00 YUE [facility] 2021-03-06 2021-03-06 Routine СЕРГЕЙ Zhang [id number] Univers 14:46:51 15:24:[address] [facility] HEALTH [id number] ity of [place] [id number] [address] 2021-03-06 2021-03-06 Outpatient R VICENTE [facility] [id number] Univers 14:45:00 15:24:[facility] 2021-03-01 2021-03-01 Telephone CAMI Zhang [id number] Univers 00:00:00 00:00:00 Nikcy Y HEALTH [id number] ity [place] [id number] [address] 2021-02-28 2021-02-28 Outpatient R [facility] [id number] Univers 14:15:00 14:15:00 [id number] ity [facility] 2021-02-28 2021-02-28 Outpatient R MICKIE DEUTSCH [facility] [id number] Univers 14:15:00 13:56:50 MICKIE DEUTSCH sunil [facility] 2021-02-28 2021-02-28 [employer] [facility], [facility] UNIVERSIT 1.2.84 [id number] Univers 13:49:02 13:56:50 Visit Mickie Deutsch HEALTH [id number] ity of [place] [id number] [facility] 113 Branch 2021-02-28 2021-02-28 [employer] 5, [facility] Us Room UNIVERSIT [id number] .2.840.114 [id number] Univers 13:17:41 13:43:10 Visit Mickie Deutsch [facility] [id number] ity of [place] [id number] [facility] 104 Branch 2021-02-28 2021-02-28 Case Bruno, UNIVERSIT [id number] Univers 00:00:00 00:00:00 Management Cassidy Dsouza [facility] [id number] ity of [place] [id number] [facility] [address] [place] 2021-02-27 2021-02-27 Routine Provider, [facility] 1 .2.840.114 [id number] Univers 14:38:43 16:48:10 Scott Mcnally MANAGER FRONT OFFICE 350.1.13 .10 ity of Visit REGIONAL 4.2.7.2.686 [place]io as MATERNAL [id number] Med ical & CHILD 107 [facility] 2021-02-27 2021-02-27 Outpatient Mari MCNALLY [facility] [id number] Univers 14:30:00 16:48:10 SCOTT ramos [facility] 2021-02-27 2021-02-27 Outpatient R [facility] [id number] Univers 14:30:00 14:30:00 [id number] ity of [facility] 2021-02-25 2021-02-25 Nurse SHYAM Miller 1.2.840.114 [id number] Univers 00:00:00 00:00:00 Triage Ryan CARTWRIGHT [id number] ity of HOSPITAL 4.2.7.2.686 [place] as [id number] [facility] 019 Branch 2021-02-20 2021-02-20 Outpatient Mari MONDRAGON [facility] [id number] Univers 11:00:00 11:29:48 YUE larios [facility] 2021-02-20 2021-02-20 Routine Alanna [facility] [id number] Univers 10:51:39 11:29:48 Yue Fletcher MANAGER FRONT OFFICE 350.1.13.10 i ty of Visit REGIONAL 4.2.7.2.686 [place]io as MATERNAL [id number] [facility] ical & CHILD 107 [facility] 2021-02-20 2021-02-20 Outpatient R ALANNA [facility] [id number] Univers 11:00:00 11:00:00 YUE [id number] [facility] 2021-02-13 2021-02-13 [employer] [facility] 1.2 .840.114 [id number] Univers 12:47:37 13:17:37 Visit Mitchell Geraldine Bennett MANAGER FRONT OFFICE 350.1. 13.10 ity of REGIONAL 4.2.7.2.686 [place]io as MATERNAL [id number] [facility] ical & CHILD 369 [facility] 2021-02-13 2021-02-13 Outpatient R [facility] [id number] Univers 13:00:00 13:00:00 [id number] [facility] 2021-02-13 2021-02-13 Outpatient P MITCHELL [facility] [id number] Univers 13:00:00 13:00:00 JACKIE it y of GERALDINE Garrison [facility] 2021-02-03 2021-02-03 Routine CAMI Zhang [id number] Univers 08:52:24 09:33:22 Nicky [facility] [id number] ity of [place] [id number] [address] 2021-02-03 2021-02-03 [facility] [id number] Univers 08:45:00 09:33:22 NICKY ity [facility] 2021-02-03 2021-02-03 Outpatient R VICENTE [facility] [id number] Univers 08:45:00 08:45:00 NICKY [id number] ity [facility] 2021-02-01 2021-02-01 Telephone CAMI Zhang [id number] [id number] Univers 00:00:00 00:00:00 Nicky Y HEALTH 350.1.13.10 ity [place] [id number] [address] 2021-01-23 2021-01-23 [facility] [id number] Univers 12:46:11 13:25:24 Yue Fletcher MANAGER FRONT OFFICE 350.1.13.10 i ty of Visit REGIONAL 4.2.7.2.686 Gio as MATERNAL [id number] Med ical & CHILD [address] [place] [address] 2021-01-23 2021-01-23 [facility] [id number] Univers 12:45:00 12:45:00 [facility] [id number] [facility] 2021-01-23 2021-01-23 Outpatient R ALANNABAR[facility]ERTON [facility] [id number] Univers 12:45:00 12:45:00 [facility] 2021-01-12 Outpatient R [facility] [id number] Univers 10:30:00 10:30:00 [id number] [facility] 2021-01-12 2021-01-12 Outpatient R [facility] [id number] Univers 10:30:00 10:30:00 ity [facility] 2021-01-10 2021-01-10 [facility] [id number] Univers 00:00:00 00:00:00 Celia Barry MANAGER FRONT OFFICE [id number] ity of REGIONAL [id number] Gio as MATERNAL [id number] [facility] ical & CHILD [address] [place] [address] 2021-01-10 2021-01-10 Telephone CAMI Zhang [id number] Univers 00:00:00 00:00:00 Nicky Y HEALTH [id number] [id number] [id number] [address] 2021-01-09 2021-01-09 [facility] [id number] Univers 14:05:25 14:20:25 Celia Barry MANAGER FRONT OFFICE [id number] ity of Visit REGIONAL [id number] [place]io as MATERNAL [id number] Med ical & CHILD [address] [place] [address] 2021-01-09 2021-01-09 Outpatient R AGATHA, [facility] [id number] Univers 14:15:00 14:15:00 CELIA [id number] ity o [facility] 2021-01-09 2021-01-09 Outpatient R AGATHA, [facility] [id number] Univers 14:15:00 14:15:00 CELIA ity o [facility] 2021-01-07 2021-01-07 Telephone CAMI Zhang [id number] Univers 00:00:00 00:00:00 [facility] [id number] [id number] [id number] [address] 2021-01-06 2021-01-06 Telephone CAMI Zhang [id number] Univers 00:00:00 00:00:00 [facility] [id number] it[id number] [id number] [address] 2021-01-06 2021-01-06 Orders Doctor HOWE [id number] Univers 00:00:00 00:00:00 Only Unassigned, GABBIE [id number] ity of [facility] [id number] [place] [id number] [address] 2021-01-05 2021-01-05 Outpatient VICENTE [facility] [id number] Univers 09:00:00 09:00:00 NICKY [id number] ity of [facility] 2021-01-05 2021-01-05 Outpatient Mari ZHANG, [facility] [id number] Univers 09:00:00 09:00:00 NICKY larios [facility] 2017-03-08 2017-03-08 Emergency E DIONNE SORIA [facility] [id number] [facility] 19:15:00 19:58:00 Medica l Center Results Test [...] POCT U APPEAR (test code = 3267) [facility] [id number] 17:04:00 Test Item Value Reference Range Interpretation [...] POCT U APPEAR (test code = 3267) [facility] URINALYSIS GLUCOSE & PROTEIN 2021-02-03 14:10:00 Test Item Value Reference Range Interpretation Comments POCT U PROT (test code = 3259) negative Negative - Negative POCT U GLU (test code = 3256) negative Negative - Negative Lab Interpretation (test code = Normal 83097-0) [facility] URINALYSIS W/O SPECIFIC [id number] 17:59:00 Test Item Value Reference Range Interpretation [...] code = 3257) neg Negative - Negative [facility] [id number] 19:52:00 Test Item Value Reference Range Interpretation [...] POCT U APPEAR (test code = 3267) [facility]
--- NOTE | 2021-08-27 08:42 | ER ---
Nurse's Notes [facility] Name: Beckie Carrillo Age: 26 yrs Sex: Female : 1995 Arrival Date: 08/27/2021 Time: 07:53 Bed 15 Private MD: Diagnosis: Person with feared health complaint in whom no diagnosis is made Presentation: 08/27 08:14 Chief complaint: Patient states: "I just had a baby on August 23 and I was taking my blood vg1 pressure this morning and it was high" Pt stated 135 systolic to 139 systolic; stated took BP 3x and stated HR was 50 to 54. Denies chest pain but stated SOB while laying down. Coronavirus screen: Vaccine status: Patient reports receiving the 2nd dose of the covid vaccine. Client denies travel out of the [place] in the last 14 days. Ebola Screen: Patient denies exposure to infectious person. Patient denies travel to an Ebola-affected area in the 21 days before illness onset. Initial Sepsis Screen: Does the patient meet any 2 criteria? No. Patient's initial sepsis screen is negative. Does the patient have a suspected source of infection? No. Patient's initial sepsis screen is negative. Risk Assessment: Do you want to hurt yourself or someone else? Patient reports no desire to harm self or others. Onset of symptoms was August 27, 2021. 08:14 Method Of Arrival: Ambulatory vg1 08:14 Acuity: ANDREW 3 vg1 Triage Assessment: 08:18 General: Appears uncomfortable, Behavior is cooperative, crying. Pain: Denies pain. vg1 Neuro: Newman Agitation-Sedation Scale (RASS): 0 - Alert and Calm Level of Consciousness is awake, alert, obeys commands, Oriented to person, place, time, situation. Cardiovascular: Patient's skin is warm and dry. 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 - Social history:: Smoking status: Patient denies any tobacco usage or history of. Screenin:18 Abuse screen: Denies threats or abuse. Denies injuries from another. Nutritional ph screening: No deficits noted. Tuberculosis screening: No symptoms or risk factors identified. Fall Risk None identified. Assessment: 08:15 Reassessment: ERP at bedside to assess pt, pt states that she was released from [facility] yesterday after being monitored since the . States that labs and testing were done at the facility and that she is unsure if she wants further labs and testing today. 08:30 General: Appears in no apparent distress. well groomed, Behavior is calm, cooperative, ph appropriate for age, Denies fever, feeling ill. Pain: Denies pain. Neuro: Level of Consciousness is awake, alert, obeys commands, Oriented to person, place, time, situation. Cardiovascular: Capillary refill < 3 seconds in bilateral fingers Patient's skin is warm and dry. Edema is 2+ to left foot, left toes, right foot and right toes. Cardiovascular: Denies chest pain. Respiratory: Airway is patent Respiratory effort is even, unlabored, Denies shortness of breath. GI: No signs and/or symptoms were reported involving the gastrointestinal system. Derm: Skin is intact, is healthy with good turgor, Skin is pink, warm \\T\\ dry. Musculoskeletal: Circulation, motion, and sensation intact. Range of motion: intact in all extremities. 09:10 Reassessment: Patient appears in no apparent distress at this time. Patient and/or ph family updated on plan of care and expected duration. Pain level reassessed. Patient is alert, oriented x 3, equal unlabored respirations, skin warm/dry/pink. Pt placed up for d/c, ERP again at bedside to speak w/ pt, reiterated concerns for pre-eclampsia and instructed pt and SO for her to return to ED for worsening of swelling, systolic BP >140, or any worsening of symptoms. Pt and SO voiced understanding of instructions, pt d/c home. Vital Signs: 08:14 BP 129 / 93; Pulse 67; Resp 16; Temp 99.3(TE); Pulse Ox 100% ; Weight 77.11 kg; Height vg1 5 ft. 4 in. (162.56 cm); Pain 0/10; 09:10 BP 126 / 89; Pulse 64; Resp 18; Temp 98.9; Pulse Ox 100% on R/A; 08:14 Body Mass Index 29.18 (77.11 kg, 162.56 cm) vg1 ED Course: 07:53 Patient arrived in ED. mr 07:59 Timmy Espinoza, SANDER is PHCP. pm1 07:59 Calin Nichols MD is Attending Physician. pm1 08:01 Betty Graham MD is Attending Physician. pm1 08:18 Triage completed. vg1 08:18 Arm band placed on. vg1 08:30 Patient has correct armband on for positive identification. Bed in low position. Call ph light in reach. Side rails up X 1. Pulse ox on. NIBP on. Door closed. Noise minimized. 09:14 Lucia Toro, RN is Primary Nurse. ph 09:18 No provider procedures requiring assistance completed. Patient did not have IV access ph during this emergency room visit. Administered Medications: No medications were administered Medication: 09:18 VIS not applicable for this client. ph Outcome: 08:41 Discharge ordered by MD. pm1 09:26 Discharged to home ambulatory, with significant other. ph 09:26 Condition: good 09:26 Discharge instructions given to patient, significant other, Instructed on discharge instructions, follow up and referral plans. Demonstrated understanding of instructions, follow-up care. 09:26 Patient left the ED. ph Signatures: Donna Beach mr Lucia Toro, RN RN ph Timmy Espinoza, SANDER ELECTRONIC COMMERCE SPECIALIST pm1 Rosaura Maria RN RN vg1 Corrections: (The following items were deleted from the chart) 09:24 09:10 Reassessment: Patient appears in no apparent distress at this time. Patient ph and/or family updated on plan of care and expected duration. Pain level reassessed. Patient is alert, oriented x 3, equal unlabored respirations, skin warm/dry/pink. ph
--- NOTE | 2021-08-27 08:42 | EDPHYS ---
Physician Documentation [facility] Name: Beckie Carrillo Age: 26 yrs Sex: Female : 1995 Arrival Date: 08/27/2021 Time: 07:53 Bed 15 Private MD: ED Physician Betty Graham HPI: 08/27 08:16 This 26 yrs old Female presents to ER via Ambulatory with complaints of High pm1 Blood Pressure, Low Heart rate. 08:16 The patient has elevated blood pressure and discovered this at home, with a home pm1 device. Onset: The symptoms/episode began/occurred today. Modifying factors: The symptoms are aggravated by raising her legs up. 08:16 Associated signs and symptoms: Pertinent positives: SOB with laying down, Pertinent pm1 negatives: chest pain, dizziness, headache, nausea, vomiting. Severity of symptoms: in the emergency department the blood pressure is unchanged. The patient has not experienced similar symptoms in the past. The patient has been recently seen by a physician: an tar pot man specialist, Hospitalized for delivery of her child from 08/23 to 08/26. 26-year-old female presents to ER with complaints of high blood pressure and low heart rate. Patient reports systolic blood pressures in the 130s and low heart rate in the 50s. Patient checked her blood pressure and heart rate after she elevated her legs and felt funny. Patient does report shortness of breath with laying down. Patient recently hospitalized for delivery on 08/23 and discharged yesterday on 08/26. 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 - Social history:: Smoking status: Patient denies any tobacco usage or history of. ROS: 08:16 Constitutional: Negative for fever, chills, and weight loss, Cardiovascular: Negative pm1 for chest pain, palpitations, and edema, Abdomen/GI: Negative for abdominal pain, nausea, vomiting, diarrhea, and constipation, Back: Negative for injury and pain, MS/Extremity: Negative for injury and deformity, Skin: Negative for injury, rash, and discoloration, Neuro: Negative for headache, weakness, numbness, tingling, and seizure. 08:16 Respiratory: Positive for shortness of breath, with lying down that has resolved. 08:16 All other systems are negative. Exam: 08:16 Constitutional: This is a well developed, well nourished patient who is awake, alert, pm1 and in no acute distress. Head/Face: Normocephalic, atraumatic. 08:16 Skin: Warm, dry with normal turgor. Normal color with no rashes, no lesions, and no evidence of cellulitis. MS/ Extremity: Pulses equal, no cyanosis. Neurovascular intact. Full, normal range of motion. 08:16 Cardiovascular: Exam negative for acute changes, Rate: normal, Rhythm: regular, Pulses: no pulse deficits are appreciated, Heart sounds: normal, Edema: pedal edema, that is mild. 08:16 Respiratory: Exam negative for acute changes, respiratory distress, shortness of breath, Breath sounds: are clear throughout. 08:16 Abdomen/GI: Inspection: abdomen appears normal, Palpation: abdomen is soft and non-tender, in all quadrants. 08:16 Back: Exam negative for acute changes, pain, is absent, ROM is normal. 08:16 Neuro: Exam negative for acute changes, Orientation: is normal, Mentation: is normal, Motor: is normal, moves all fours, Sensation: no obvious gross deficits. Vital Signs: 08:14 BP 129 / 93; Pulse 67; Resp 16; Temp 99.3(TE); Pulse Ox 100% ; Weight 77.11 kg; Height vg1 5 ft. 4 in. (162.56 cm); Pain 0/10; 09:10 BP 126 / 89; Pulse 64; Resp 18; Temp 98.9; Pulse Ox 100% on R/A; ph 08:14 Body Mass Index 29.18 (77.11 kg, 162.56 cm) vg1 MDM: 08:01 Patient medically screened. pm1 08:16 ED course: Patient evaluated and I told her my plan of care for her ER visit which pm1 includes labs and EKG. Patient wants to go home because her vital signs are normal. She was released from the hospital yesterday after delivery of her child on 08/23 and she had blood work each morning. Since her blood work was checked yesterday she does not want her blood work checked again. Advised her to discuss with significant other to decide if she would like evaluation and treatment here. 08:26 Data reviewed: vital signs. Data interpreted: Pulse oximetry: on room air is 100 %. pm1 Interpretation: normal. 08:26 Differential diagnosis: hypertensive crisis, Preeclampsia, hypertension, pm1 bradycardia. 08:40 Refusal of service: The patient/guardian displays adequate decision making capability pm1 and despite a detailed discussion of alternatives, benefits, risks, and consequences refuses: all lab tests, EKG. Discussed return precautions with the patient. 09:01 Refusal of service: The patient/guardian displays adequate decision making capability pm1 and despite a detailed discussion of alternatives, benefits, risks, and consequences refuses: all lab tests, Discussed with the patient and her significant other that my primary differential is preeclampsia and to return to the ER for any complaints or concerns. Administered Medications: No medications were administered Disposition Summary: 08/27/21 08:41 Discharge Ordered Location: Home pm1 Problem: new pm1 Symptoms: are unchanged pm1 Condition: Stable pm1 Diagnosis - Person with feared health complaint in whom no diagnosis is made pm1 Followup: pm1 - With: Emergency Department - When: As needed - Reason: Worsening of condition Followup: pm1 - With: Private Physician - When: 2 - 3 days - Reason: Recheck today's complaints, Continuance of care, Re-evaluation by your physician Forms: - Medication Reconciliation Form pm1 - Thank You Letter pm1 - Antibiotic Education pm1 - Prescription Opioid Use pm1 Signatures: Timmy Espinoza NP BRACER pm1 Rosaura Maria, RN RN vg1
[2021-08-27 09:35] VITALS: O2SAT 100
[2021-08-27 09:36] VITALS: BP 126/89; TEMP 98.9
== END 2021-08-27 09:26 | disposition home or self-care (01) ==
LOC: ER 07:51
DX: I10 Essential (primary) hypertension (principal); Z71.1 Person with feared health complaint in whom no diagnosis is made
CPT/HCPCS: 99283